=== PATIENT | female | born 1960 | race Caucasian/White ===

== ENCOUNTER 2020-04-24 09:11 | Outpatient (REF) | payer OTHER, SELFPAY ==
[2020-04-24 10:56] LABS: Hematocrit 37.9 % (37-47); Hemoglobin 12.3 g/dl (12.0-16.0); Mean Corpuscular HGB Conc 32.5 g/dl (31.0-35.0); Mean Corpuscular Hemoglobin 29.7 pg (27.0-33.0); Mean Corpuscular Volume 91.5 fL (80-98); Mean Platelet Volume 9.9 fL (9.4-12.3); Platelet Count 243 X10*3/uL (160-400); Red Blood Count 4.14 X10*6/uL (4.20-5.50); Red Cell Distribution Width 14.6 % (11.0-16.0); White Blood Count 6.4 X10*3/uL (4.8-10.8)
[2020-04-24 12:09] LABS: Creatinine Urine 33.47 mg/dL; Microalbum/Creatinine Ratio Ur 152.3 ug/mg cr
[2020-04-24 12:16] LABS: Alanine Aminotransferase 57 U/L (0-31); Albumin Level 4.4 g/dL (3.5-5.0); Alkaline Phosphatase 94 U/L (39-117); Anion Gap 15 (12-20); Aspartate Amino Transferase 61 U/L (5-31); Bilirubin Direct 0.2 mg/dL (0.0-0.5); Bilirubin Total 0.6 mg/dL (0.0-1.0); Blood Urea Nitrogen 9 mg/dL (9-16); Calcium 9.2 mg/dL (8.4-10.2); Carbon Dioxide 26 mmol/L (22-29); Chloride 101 mmol/L (96-108); Cholesterol 334 mg/dL; Estimated Glomerular Filt Rate > 60; Glucose Fasting 245 mg/dL (60-99); HDL Cholesterol 37 mg/dL; LDL Cholesterol Calculated 231 mg/dl; Potassium 4.4 mmol/l (3.3-5.1); Sodium 138 mmol/L (135-145); Total Protein 7.8 g/dL (6.5-8.0); Triglycerides 333 mg/dL
== END 2020-04-24 09:12 | disposition home or self-care (01) ==
LOC: HO.WFDLDS 09:11
PROVIDERS: Visit Provider Hospitalist
DX: E11.9 Type 2 diabetes mellitus without complications (principal)
CPT/HCPCS: 36415; 80048; 80061; 80076; 82043; 84443; 85027

== ENCOUNTER 2021-08-18 09:00 | Outpatient (REF) | payer OTHER, SELFPAY ==
[2021-08-18 12:25] LABS: Folate 18.2 ng/mL (> or = 4.0); Vitamin B12 374 pg/mL (200-900)
== END 2021-08-18 09:01 | disposition home or self-care (01) ==
LOC: HO.WFDLDS 09:00
PROVIDERS: Visit Provider Hospitalist
DX: E56.9 Vitamin deficiency, unspecified (principal)
CPT/HCPCS: 36415; 82607; 82746

== ENCOUNTER 2021-08-20 08:14 | Outpatient (REF) | payer OTHER, SELFPAY ==
[2021-08-20 11:57] LABS: Hematocrit 35.8 % (37.0-47.0); Hemoglobin 11.4 g/dl (12.0-16.0); Mean Corpuscular HGB Conc 31.8 g/dl (31.0-35.0); Mean Corpuscular Hemoglobin 28.2 pg (27.0-33.0); Mean Corpuscular Volume 88.6 fL (80.0-98.0); Mean Platelet Volume 10.2 fL (9.4-12.3); Platelet Count 300 X10*3/uL (160-400); Red Blood Count 4.04 X10*6/uL (4.20-5.50); Red Cell Distribution Width 15.7 % (11.0-16.0); White Blood Count 7.3 X10*3/uL (4.8-10.8)
[2021-08-20 12:31] LABS: TSH reflex Free T4 2.85 uIU/mL (0.32-4.0)
[2021-08-20 12:43] LABS: Alanine Aminotransferase 22 U/L (0-31); Albumin Level 4.6 g/dL (3.5-5.0); Alkaline Phosphatase 70 U/L (39-117); Anion Gap 15 (12-20); Aspartate Amino Transferase 36 U/L (5-31); Bilirubin Total 0.6 mg/dL (0.0-1.0); Blood Urea Nitrogen 20 mg/dL (9-16); Calcium 10.1 mg/dL (8.4-10.2); Carbon Dioxide 24 mmol/L (22-29); Chloride 105 mmol/L (96-108); Cholesterol 134 mg/dL; Estimated Glomerular Filt Rate 52; Glucose Fasting 119 mg/dL (60-99); HDL Cholesterol 36 mg/dL; LDL Cholesterol Calculated 58 mg/dl; Sodium 140 mmol/L (135-145); Triglycerides 203 mg/dL
== END 2021-08-20 08:15 | disposition home or self-care (01) ==
LOC: HO.WFDLDS 08:14
PROVIDERS: Visit Provider Hospitalist
DX: E11.9 Type 2 diabetes mellitus without complications (principal); I10 Essential (primary) hypertension; E78.00 Pure hypercholesterolemia, unspecified
CPT/HCPCS: 36415; 80053; 80061; 84443; 85027

== ENCOUNTER 2022-03-13 08:12 | Outpatient (REF) | payer OTHER, SELFPAY ==
[2022-03-13 11:36] LABS: Hematocrit 38.2 % (37.0-47.0); Hemoglobin 12.2 g/dl (12.0-16.0); Mean Corpuscular HGB Conc 31.9 g/dl (31.0-35.0); Mean Corpuscular Hemoglobin 28.5 pg (27.0-33.0); Mean Corpuscular Volume 89.3 fL (80.0-98.0); Mean Platelet Volume 10.3 fL (9.4-12.3); Platelet Count 309 X10*3/uL (160-400); Red Blood Count 4.28 X10*6/uL (4.20-5.50); Red Cell Distribution Width 15.6 % (11.0-16.0); White Blood Count 6.7 X10*3/uL (4.8-10.8)
[2022-03-13 12:13] LABS: Alanine Aminotransferase 20 U/L (0-31); Albumin Level 4.5 g/dL (3.5-5.0); Alkaline Phosphatase 79 U/L (39-117); Anion Gap 17 (12-20); Aspartate Amino Transferase 24 U/L (5-31); Bilirubin Total 0.5 mg/dL (0.0-1.0); Blood Urea Nitrogen 14 mg/dL (9-16); Calcium 9.7 mg/dL (8.4-10.2); Carbon Dioxide 26 mmol/L (22-29); Chloride 101 mmol/L (96-108); Cholesterol 390 mg/dL; Estimated Glomerular Filt Rate > 60; Glucose Fasting 190 mg/dL (60-99); HDL Cholesterol 43 mg/dL; LDL Cholesterol Calculated 288 mg/dl; Potassium 4.2 mmol/L (3.3-5.1); Sodium 140 mmol/L (135-145); Total Protein 7.8 g/dL (6.5-8.0); Triglycerides 298 mg/dL
== END 2022-03-13 08:13 | disposition home or self-care (01) ==
LOC: HO.WFDLDS 08:12
PROVIDERS: Visit Provider Hospitalist
DX: Z00.00 Encounter for general adult medical examination without abnormal findings (principal); E78.00 Pure hypercholesterolemia, unspecified; D64.9 Anemia, unspecified; I10 Essential (primary) hypertension
CPT/HCPCS: 36415; 80053; 80061; 85027

== ENCOUNTER 2023-08-17 09:52 | Outpatient (AMB) | payer OTHER, SELFPAY ==
[2023-08-17 09:57] VITALS: BP 142/72; PULSE 105; O2SAT 99; BMI 28.4
--- NOTE | 2023-08-17 09:57 | MHC.PC.OV ---
Vital Signs 08/17/23 09:57 Height 5 ft 2 in Weight 155 lb 6 oz BMI 28.4 BP 142/72 H Blood Pressure Location Lt brachial Pulse 105 H Pulse Source Pulse Oximeter Pulse Oximetry (%) 99 Oxygen Delivery Method Room Air Intake Visit Reasons: trans care from [facility] Intake Note: Patient is here to transfer of care. Patient needs refills on Metformin, Lisinopril, glipizide, and 'Ezetimide. Allergies simvastatin Allergy (Intermediate, Verified 08/17/23 09:58) rash aspirin Allergy (Mild, Verified 08/17/23 09:58) rash penicillin V Allergy (Mild, Verified 08/17/23 09:58) rash rousvastatin Adverse Reaction (Uncoded 08/17/23 09:58) Rash Tobacco use date assessed: 08/17/23 Dental Screening Dental Screen Date: 08/17/23 Did you have a dental visit in the last 12 months?: Yes Did you have a dental problem in the last 6 months where you did not have access to dental care?: No Was dental information given to patient?: Patient has dentist HPI trans care from [facility] HPI Details Transfer of Care Prior PCP:?SV Last office visit/CPE: Acute issue(s): Diabetes -Is on glipizide 5mg b.i.d, metformin 1000mg b.i.d. PMHx: Diabetes, Hypertension, HLD SurgHx: FHx: SocHx: PFSH Medical History HBP (high blood pressure) High cholesterol Type 2 diabetes mellitus Surgical History History of cholecystectomy Social History Housing: Unknown / Unable to assess Patient Tobacco Use Status: Never used Tobacco e-Cigarette/Vaping Use: Never Used Current occupational status: unemployed Cognitive needs: No Hearing needs: No Vision needs: No Questionnaire PHQ-9 Over the last 2 weeks, how often have you been bothered by any of the following problems? 1. Little interest or pleasure in doing things: not at all 2. Feeling down, depressed, or hopeless: not at all 3. Trouble falling or staying asleep, or sleeping too much: not at all 4. Feeling tired or having little energy: not at all 5. Poor appetite or overeating: not at all 6. Feeling bad about yourself - or that you are a failure or have let yourself or your family down: not at all 7. Trouble concentrating on things, such as reading the newspaper or watching television: not at all 8. Moving or speaking so slowly that other people could have noticed. Or the opposite - being so fidgety or restless that you have been moving around a lot more than usual: not at all 9. Thoughts that you would be better off or of hurting yourself in some way: not at all Total score: 0 Source: Developed by Drs. Carrington Fontenot, Rosanna Casillas, Hammad Kuhn and colleagues, with an educational todd from [employer]. Thrive Questionnaire Date Thrive assessed: 08/17/23 I am a: Patient What is your living situation today?: I have a steady place to live Within the past 12 months, did the food you bought not last and you didn't have the money to get more?: Never true Within the past 12 months, did you worry whether your food would run out before you got money to buy more?: Never true Do you have trouble paying for medicines?: No Do you have trouble getting transportation to medical appointments?: No Do you have trouble paying your heating and electricity bill?: No Do you have trouble taking care of your child, family member or friend?: No Do you have trouble with day-to-day activities such as bathing, preparing meals, shopping, managing finances, etc.?: No Are you currently unemployed and looking for a job?: No Are you interested in more education?: No THRIVE Score: 0 AUDIT C Alcohol Use Questionnaire (AUDIT-C) 1. How often do you have a drink containing alcohol?: Never 3. How often do you have six or more drinks on one occasion?: Never Total Score: 0 NOE-7 AMB Questionnaire NOE-7 Date NOE - 7 assessed: 08/17/23 Feeling nervous, anxious, or on edge: 0 = Not at all Not being able to stop or control worryin = Not at all Worrying too much about different things: 0 = Not at all Trouble relaxin = Not at all Being so restless that it is hard to sit still: 0 = Not at all Becoming easily annoyed or irritable: 0 = Not at all Feeling afraid as if something awful might happen: 0 = Not at all Total NOE-7 score (0-4 normal; 5-9 mild; 10-14 moderate; 15-21 severe): 0 Source: Developed by Drs. Carrington Fontenot, Rosanna Casillas, Hammad Kuhn and colleagues, with an educational todd from [employer]. Review of Systems Const Denies chills, Denies fatigue, Denies fever(s), Denies headache(s) and Denies weakness ENT Denies dizziness and Denies headache(s) Card Denies chest pain, Denies lightheadedness, Denies dyspnea and Denies other (Palpitations) Resp Denies cough, Denies dyspnea, Denies wheezing and Denies other ( shortness of breath) Musc Denies numbness and Denies tingling Neuro Denies dizziness, Denies headache(s), Denies numbness, Denies tingling, Denies paresthesias and Denies weakness Psych Denies anxiety and Denies depression Endo Denies fatigue Aller/Immun Denies wheezing Physical exam (Primary Care) Vital Signs: Last Vital Signs Pulse 105 H 08/17/23 09:57 BP 142/72 H 08/17/23 09:57 Pulse Ox 99 08/17/23 09:57 Oxygen Delivery Method Room Air 08/17/23 09:57 BMI result Body Mass Index 28.4 Tobacco/Smoking Status: Tobacco use Status Tobacco use date assessed 08/17/23 08/17/23 10:09 Patient Tobacco Use Status Never used Tobacco 08/17/23 09:58 e-Cigarette/Vaping Use Never Used 08/17/23 10:09 PHQ-9: PHQ-9 Score PHQ-9: Total score 0 08/17/23 10:09 Thrive Assessment: Date of Thrive Assessment Date Thrive assessed 08/17/23 08/17/23 10:09 Const General: no acute distress and well developed Nutritional Appearance: well nourished Orientation/consciousness: patient oriented x3 HENMT Head: Yes normocephalic and Yes atraumatic Eyes General: appearance normal, both eyes and all related structures Pupils: Equal, round and reactive pupils present EOM: EOMs intact bilaterally Resp Effort & Inspection: normal respiratory effort Auscultation: clear to auscultation bilaterally Cardio Rate: regular rate Rhythm: regular rhythm Heart sounds: S1 normal heart sound present, S2 normal heart sound present, no gallops, no murmurs and no rubs Neuro General: patient oriented x3 and gait normal Cranial nerves: Yes Equal, round and reactive pupils present Psych Affect: normal affect Results AMB Hemoglobin A1c AMB Hemoglobin A1c 9.2 % Last Edit by Chayito Rodrigues CMA on 08/17/23 10:17 Assessment and Plan Assessment & Plan (1) Type 2 diabetes mellitus: Code(s): E11.9 - Type 2 diabetes mellitus without complications Qualifiers: Diabetes mellitus complication status: without complication Diabetes mellitus manager long term care insulin use: without manager long term care use Qualified Code(s): E11.9 - Type 2 diabetes mellitus without complications Plan: A1c?9.2%.??Poor?control.??Goal?is?less?than?7.0% She?has?been?taking?glipizide?5?mg?b.i.d.?and?will?change?this?to?10?mg?a.m.?and?5?mg?p.m. Continue?metformin?1000?mg?b.i.d.?for?now. Encouraged?diet?lower?in?sugars?and?starches,?particularly?at?night?as?she?notes?that?her?morning?blood?sugars?are?high?but?her?daytime?blood?sugars?have?been?okay She?gets?an?annual?eye?exam?and?has?her?next?appointment?in?August (2) High cholesterol: Code(s): E78.00 - Pure hypercholesterolemia, unspecified Plan: Check?labs (3) HBP (high blood pressure): Code(s): I10 - Essential (primary) hypertension Qualifiers: Hypertension type: essential hypertension Qualified Code(s): I10 - Essential (primary) hypertension Plan: Blood?pressure?is?high?at?the?office?today. Will?give?her?a?script?for?monitor?and?she?can?let?me?know?if?blood?pressures?are?high?at?home?also If?blood?pressures?are?still?running?high?at?home?or?still?too?high?in?the?office,?we?discussed?that?we?may?want?to?adjust?her?medications?at?her?next?visit. (4) Laboratory exam ordered as part of routine general medical examination: Code(s): Z00.00 - Encounter for general adult medical examination without abnormal findings Plan: Check?lab Orders: Orders Lipid Panel Today Z00.00 - Encounter for general adult medical examination without abnormal findings Microalbumin, Random (w Creat) Today I10 - Essential (primary) hypertension TSH reflex Free T4 Today Z00.00 - Encounter for general adult medical examination without abnormal findings UA and rflx microscopic Today Z00.00 - Encounter for general adult medical examination without abnormal findings Comprehensive [place]. Panel Fast Today Z00.00 - Encounter for general adult medical examination without abnormal findings Vitamin D 25-OH Total Today E55.9 - Vitamin D deficiency, unspecified AMB Hemoglobin A1c Today Z13.9 - Encounter for screening, unspecified Medications: New blood pressure monitor Automatic, Digital. Dx: I10. Daily As directed, 999 days/lifetime 1 ea 0RF I10 - Essential (primary) hypertension Refilled metformin 1,000 mg (2 x 500 mg) PO BID 360 tabs 2RF E11.9 - Type 2 diabetes mellitus without complications glipizide 5 mg (1/2 x 10 mg) PO BID 90 tabs 1RF E11.9 - Type 2 diabetes mellitus without complications ezetimibe 10 mg PO DAILY 90 tabs 3RF E78.00 - Pure hypercholesterolemia, unspecified lisinopril 40 mg PO DAILY 90 tabs 3RF E11.9 - Type 2 diabetes mellitus without complications lisinopril 40 mg PO DAILY 90 tabs 3RF E11.9 - Type 2 diabetes mellitus without complications Coding Level of Care Code Est Pt Level 4 (76696) Diagnoses Type 2 diabetes mellitus without complication, without long-term current use of insulin E11.9 Diabetes mellitus complication status: without complication Diabetes mellitus manager long term care insulin use: without [facility] use High cholesterol E78.00 Essential hypertension I10 Hypertension type: essential hypertension Laboratory exam ordered as part of routine general medical examination Z00.00
== END 2023-08-17 11:18 | disposition home or self-care (01) ==
PROVIDERS: PCP Hospitalist; Visit Provider Family Medicine
DX: E11.9 Type 2 diabetes mellitus without complications (principal); E78.00 Pure hypercholesterolemia, unspecified; I10 Essential (primary) hypertension; Z00.00 Encounter for general adult medical examination without abnormal findings; Z13.9 Encounter for screening, unspecified
CPT/HCPCS: 83036; 99214

== ENCOUNTER 2023-09-02 12:51 | Outpatient (AMB) | payer OTHER, SELFPAY ==
--- NOTE | 2023-09-02 13:19 | MHC.PC.OV ---
Vital Signs 09/02/23 13:21 09/02/23 13:33 09/02/23 13:46 Height 5 ft 2 in Weight 152 lb BMI 27.8 BP 192/82 H 160/60 H 144/64 H Blood Pressure Location Rt brachial Rt brachial Rt radial Position Sitting Sitting Sitting Respiration 12 Pulse 97 Pulse Source Pulse Oximeter Temp 96.6 F L Temp Source Temporal Artery Scan Pulse Oximetry (%) 96 Oxygen Delivery Method Room Air Intake Visit Reasons: [facility] /Elev bp Intake Note: Patient is accompanied by her Irwin Chatterjee. Patient is here for a hospital discharge follow up. Patient was seen a [facility], medical records are scanned into the chart. Patient reports she went to the ER for high blood pressure. Patient started HCTZ 12.5mg QAM. Patient states she took the HCTZ at 8am. The HCTZ is in addition to Lisinopril 40mg. Hot Roll Laminator Required: No Accompanied by: Spouse Allergies simvastatin Allergy (Intermediate, Verified 09/02/23 13:32) rash aspirin Allergy (Mild, Verified 09/02/23 13:32) rash penicillin V Allergy (Mild, Verified 09/02/23 13:32) rash rousvastatin Adverse Reaction (Uncoded 09/02/23 13:30) Rash Medication List - Last Reconciled 09[facility]02/23 [facility] blood pressure monitor Automatic, Digital. Dx: I10. Daily As directed, 999 days/lifetime blood sugar diagnostic (FreeStyle Lite Strips) 1 strip miscellaneous BID PRN blood-glucose meter (FreeStyle Lite Meter kit) As directed cholecalciferol (vitamin D3) 50 mcg PO DAILY ezetimibe 10 mg PO DAILY ferrous sulfate (Feosol) 325 mg PO BID glipizide 5 mg (1/2 x 10 mg) PO BID hydrochlorothiazide 12.5 mg PO QAM lisinopril 40 mg PO DAILY metformin 1,000 mg (2 x 500 mg) PO BID multivitamin with folic acid 400 mcg (Daily-[place] (with folic acid)) 1 tab PO DAILY Tobacco use date assessed: 08/17/23 Dental Screening Dental Screen Date: 08/17/23 HPI HPI Comments History of Present Illness Details 63-year-old female with anemia, hypertension, hyperlipidemia, type 2 diabetes, bilat cataracts status post cholecystectomy Health maintenance Hemoglobin A1c 9.2% 08/17/2023 Diabetic eye exam 09/10/2022 negative for diabetic retinopathy DEXA Colonoscopy: Mammo Last set of labs 03/13/2022 show a normal CBC, normal electrolytes, normal renal function, elevated lipid profile Here today for HDF Went to [facility] ED 09/02/23 for uncontrolled HTN Work up reviewed. New meds: HCTZ 12.5 mg po QD Feels fine. Taking meds as directed. [facility] Medical History HBP (high blood pressure) High cholesterol Type 2 diabetes mellitus Surgical History History of cholecystectomy Social History Housing: Unknown / Unable to assess Patient Tobacco Use Status: Never used Tobacco e-Cigarette/Vaping Use: Never Used Current occupational status: unemployed Cognitive needs: No Hearing needs: No Vision needs: No Questionnaire PHQ-9 Over the last 2 weeks, how often have you been bothered by any of the following problems? 1. Little interest or pleasure in doing things: not at all 2. Feeling down, depressed, or hopeless: not at all 3. Trouble falling or staying asleep, or sleeping too much: not at all 4. Feeling tired or having little energy: not at all 5. Poor appetite or overeating: not at all 6. Feeling bad about yourself - or that you are a failure or have let yourself or your family down: not at all 7. Trouble concentrating on things, such as reading the newspaper or watching television: not at all 8. Moving or speaking so slowly that other people could have noticed. Or the opposite - being so fidgety or restless that you have been moving around a lot more than usual: not at all 9. Thoughts that you would be better off or of hurting yourself in some way: not at all Total score: 0 Depression Screening Interpretation: Negative Depression Screening Done: Yes 15467 - PHQ-9 Billing: Patient declined-do not bill Source: Developed by Drs. Carrington Fontenot, Rosanna Casillas, Hammad Kuhn and colleagues, with an educational todd from [employer]. Thrive Questionnaire Date Thrive assessed: 08/17/23 NOE-7 AMB Questionnaire NOE-7 Date NOE - 7 assessed: 08/17/23 Source: Developed by Drs. Carrington Fontenot, Rosanna Casillas, Hammad Kuhn and colleagues, with an educational todd from [employer]. Review of Systems Const All systems reviewed & are unremarkable except as noted in HPI and below Physical exam (Primary Care) Vital Signs: Last Vital Signs Temp 96.6 F L 09/02/23 13:21 Pulse 97 09/02/23 13:21 Resp 12 09/02/23 13:21 BP 192/82 H 09/02/23 13:21 Pulse Ox 96 09/02/23 13:21 Oxygen Delivery Method Room Air 09/02/23 13:21 Care Plan Goal for BP management: cont meds, monitor at home BMI result Body Mass Index 27.8 BMI Assessment/Plan discussion: High BMI High, discussed plan: lifestyle Tobacco/Smoking Status: Tobacco use Status Tobacco use date assessed 08/17/23 08/17/23 10:09 Patient Tobacco Use Status Never used Tobacco 08/17/23 09:58 e-Cigarette/Vaping Use Never Used 08/17/23 10:09 Depression Screening Interpretation: Negative Thrive Assessment: Date of Thrive Assessment Date Thrive assessed 08/17/23 08/17/23 10:09 Const Other: awake alert accompanied by RRR LS CTAB Assessment and Plan Assessment & Plan (1) HBP (high blood pressure): Comment: On lisinopril 40 mg p.o. daily. Emergency room visit 09/02/2023 for elevated blood pressure. Started on hydrochlorothiazide 12.5 mg p.o. daily. Great improvement in blood pressure. Advised to continue. Monitor blood pressure daily at home. Goals less than 130/80. Return to office in 2 weeks for close follow up. Code(s): I10 - Essential (primary) hypertension Qualifiers: Hypertension type: essential hypertension Qualified Code(s): I10 - Essential (primary) hypertension (2) Hospital discharge follow-up: Code(s): Z09 - Encounter for follow-up examination after completed treatment for conditions other than malignant neoplasm Plan: This note is constructed using voice recognition software. While every effort has been made to ensure accuracy in camp manager, still errors may have been included Sometimes, these errors may affect the content or meaning of the given sentence . Total time spent caring for the patient today was 60 minutes. This includes time spent before the visit reviewing the chart, time spent during the visit, and time spent after the visit on documentation (3) Diabetes mellitus type 2 with complications: Code(s): E11.8 - Type 2 diabetes mellitus with unspecified complications (4) Hyperlipidemia associated with type 2 diabetes mellitus: Code(s): E11.69 - Type 2 diabetes mellitus with other specified complication; E78.5 - Hyperlipidemia, unspecified (5) Cataract due to secondary diabetes: Code(s): E13.36 - Other specified diabetes mellitus with diabetic cataract Orders: Orders Lipid Panel 10/25/23 E11.69 - Type 2 diabetes mellitus with other specified complication, E11.8 - Type 2 diabetes mellitus with unspecified complications, E13.36 - Other specified diabetes mellitus with diabetic cataract, E78.5 - Hyperlipidemia, unspecified, I10 - Essential (primary) hypertension Hemoglobin A1c 10/25/23 E11.69 - Type 2 diabetes mellitus with other specified complication, E11.8 - Type 2 diabetes mellitus with unspecified complications, E13.36 - Other specified diabetes mellitus with diabetic cataract, E78.5 - Hyperlipidemia, unspecified, I10 - Essential (primary) hypertension Comprehensive [place]. Panel Fast 10/25/23 E11.69 - Type 2 diabetes mellitus with other specified complication, E11.8 - Type 2 diabetes mellitus with unspecified complications, E13.36 - Other specified diabetes mellitus with diabetic cataract, E78.5 - Hyperlipidemia, unspecified, I10 - Essential (primary) hypertension Vitamin B12 and Folate 10/25/23 E11.69 - Type 2 diabetes mellitus with other specified complication, E11.8 - Type 2 diabetes mellitus with unspecified complications, E13.36 - Other specified diabetes mellitus with diabetic cataract, E78.5 - Hyperlipidemia, unspecified, I10 - Essential (primary) hypertension Hemoglobin and Hematocrit 10/25/23 E11.69 - Type 2 diabetes mellitus with other specified complication, E11.8 - Type 2 diabetes mellitus with unspecified complications, E13.36 - Other specified diabetes mellitus with diabetic cataract, E78.5 - Hyperlipidemia, unspecified, I10 - Essential (primary) hypertension Microalbumin, Random (w Creat) 10/25/23 E11.69 - Type 2 diabetes mellitus with other specified complication, E11.8 - Type 2 diabetes mellitus with unspecified complications, E13.36 - Other specified diabetes mellitus with diabetic cataract, E78.5 - Hyperlipidemia, unspecified, I10 - Essential (primary) hypertension Vitamin D 1,25 dihydroxy 10/24/ E11.69 - Type 2 diabetes mellitus with other specified complication, E11.8 - Type 2 diabetes mellitus with unspecified complications, E13.36 - Other specified diabetes mellitus with diabetic cataract, E78.5 - Hyperlipidemia, unspecified, I10 - Essential (primary) hypertension Patient Instructions: OMRON is the brand for the BP cuff - you can get this at [facility] Goal < 130/80 Check once daily, bring log with you to next visit Next visit in 2 weeks to follow up on hypertension and to establish care. Sooner if needed. Coding Level of Care Code Est Pt Level 5 (63353) Diagnoses Essential hypertension I10 Hypertension type: essential hypertension Hospital discharge follow-up Z09 Diabetes mellitus type 2 with complications E11.8 Hyperlipidemia associated with type 2 diabetes mellitus E11.69; E78.5 Cataract due to secondary diabetes E13.36
[2023-09-02 13:21] VITALS: BP 192/82; PULSE 97; RESP 12; TEMP 35.9; O2SAT 96; BMI 27.8
[2023-09-02 13:33] VITALS: BP 160/60
[2023-09-02 13:46] VITALS: BP 144/64
== END 2023-09-02 13:56 | disposition home or self-care (01) ==
PROVIDERS: PCP Hospitalist; Visit Provider Nurse Practitioner Family
DX: I10 Essential (primary) hypertension (principal); E11.69 Type 2 diabetes mellitus with other specified complication; Z09 Encounter for follow-up examination after completed treatment for conditions other than malignant neoplasm; E78.5 Hyperlipidemia, unspecified
CPT/HCPCS: 99215; 99417

== ENCOUNTER 2023-09-03 12:38 | Outpatient (AMB) | payer OTHER, SELFPAY ==
--- NOTE | 2023-09-03 13:09 | MHC.OFFWIV ---
Intake Vital Signs 09/03/23 13:16 09/03/23 13:18 09/03/23 13:45 Height 5 ft 2 in Weight 152 lb 4 oz BMI 27.8 BP 162/84 H 160/78 H 134/62 Blood Pressure Location Lt brachial Lt brachial Rt brachial Position Sitting Sitting Respiration 14 Pulse 89 Pulse Source Pulse Oximeter Pulse Oximetry (%) 98 Oxygen Delivery Method Room Air Intake Visit Reasons: low blood sugar Intake Note: Low glucose, 50 last night. Patient has been working on her diet and reducing carbs. Needs refill on test strips Patient Tobacco Use Status: Never used Tobacco Allergies simvastatin Allergy (Intermediate, Verified 09/03/23 13:32) rash aspirin Allergy (Mild, Verified 09/03/23 13:32) rash penicillin V Allergy (Mild, Verified 09/03/23 13:32) rash rousvastatin Adverse Reaction (Uncoded 09/02/23 13:30) Rash Medication List - Last Reconciled 09/03/23 by Raquel Win, [facility] blood pressure monitor Automatic, Digital. Dx: I10. Daily As directed, 999 days/lifetime blood sugar diagnostic (FreeStyle Lite Strips) 1 strip miscellaneous BID PRN blood-glucose meter (FreeStyle Lite Meter kit) As directed cholecalciferol (vitamin D3) 50 mcg PO DAILY ezetimibe 10 mg PO DAILY ferrous sulfate (Feosol) 325 mg PO BID glipizide 5 mg (1/2 x 10 mg) PO BID hydrochlorothiazide 12.5 mg PO QAM lisinopril 40 mg PO DAILY metformin 1,000 mg (2 x 500 mg) PO BID multivitamin with folic acid 400 mcg (Daily-Catarino (with folic acid)) 1 tab PO DAILY vitamin B complex 1 cap PO DAILY Do you need a note to return to daycare/school/sports/work: No HPI HPI Comments History of Present Illness Details Here today w/ c/o hypoglycemia occured last night around 1030pm she was awoke from sleeping; it was 50mg/dl Admits dietary changes, , low carb, low sugar. Treat a low blood sugar with food. With positive effect. Admits to overeating since this time as she felt so terrible during the low blood sugar episode. Blood glucose at the time of visit today 146. [facility] Medical History (Updated 09/03/23 @ 15:12 by Raquel Win, [facility]-) Vitamin deficiency Fungal rash of torso Fungal infection HBP (high blood pressure) High cholesterol Type 2 diabetes mellitus Surgical History History of cholecystectomy Social History Housing: Unknown / Unable to assess Patient Tobacco Use Status: Never used Tobacco e-Cigarette/Vaping Use: Never Used Current occupational status: unemployed Cognitive needs: No Hearing needs: No Vision needs: No Review of Systems Const All systems reviewed & are unremarkable except as noted in HPI and below Physical Exam Vital Signs: Last Vital Signs Pulse 89 09/03/23 13:16 Resp 14 09/03/23 13:16 BP 160/78 H 09/03/23 13:18 Pulse Ox 98 09/03/23 13:16 Oxygen Delivery Method Room Air 09/03/23 13:16 BMI result Body Mass Index 27.8 Const Other: Awake alert oriented no acute distress accompanied by Speaking in full sentences Assessment & Plan Assessment & Plan (1) Diabetes mellitus type 2 with complications: Comment: Hypoglycemia while taking glipizide 10 mg p.o. b.i.d. in addition to metformin a 1000 mg p.o. b.i.d.. The plan will be to have her discontinue the glipizide immediately. New prescription sent in for empaglifozin-metformin ER 5-1000 mg ER 2 tablets p.o. q.a.m. She should discontinue her metformin once she starts this medication. Continue to monitor blood sugars. Return to office in 2 weeks for monitoring. The rules of 15 reviewed with her today. Should discuss CGM at the next visit. Code(s): E11.8 - Type 2 diabetes mellitus with unspecified complications Plan: . Plan This note is constructed using voice recognition software. While every effort has been made to ensure accuracy in shipboard intelligence analyst, still errors may have been included Sometimes, these errors may affect the content or meaning of the given sentence . Total time spent caring for the patient today was 30 minutes. This includes time spent before the visit reviewing the chart, time spent during the visit, and time spent after the visit on documentation Medications: New empagliflozin-metformin 5-1,000 mg ER 2 tabs (2 x 5-1,000 mg) PO QAM 60 ea 0RF Refilled blood sugar diagnostic (FreeStyle Lite Strips) 1 strip miscellaneous BID PRN 100 strips 10RF for diabetes mellitus E11.9 - Type 2 diabetes mellitus without complications Discontinued metformin Discontinued Reason: Doctor's Order 1,000 mg (2 x 500 mg) PO BID 360 tabs 2RF E11.9 - Type 2 diabetes mellitus without complications glipizide Discontinued Reason: Doctor's Order 5 mg (1/2 x 10 mg) PO BID 90 tabs 1RF E11.9 - Type 2 diabetes mellitus without complications Patient Instructions: Take Metformin tonight STOP GLipizide immediatley Tomorrow start new medication and STOP taking Metformin (there is metformin in the new medicine i sent in) cont to eat and drink normally and monitor your blood sugar I will see you in 2 weeks, sooner if needed Coding Level of Care Code Est Pt Level 4 (12298) Diagnoses Diabetes mellitus type 2 with complications E11.8
[2023-09-03 13:16] VITALS: BP 162/84; PULSE 89; RESP 14; O2SAT 98; BMI 27.8
[2023-09-03 13:18] VITALS: BP 160/78
[2023-09-03 13:45] VITALS: BP 134/62
== END 2023-09-03 14:06 | disposition home or self-care (01) ==
PROVIDERS: PCP Hospitalist
DX: E11.8 Type 2 diabetes mellitus with unspecified complications (principal)
CPT/HCPCS: 99214

== ENCOUNTER 2023-09-14 09:16 | Outpatient (AMB) | payer OTHER, SELFPAY ==
--- NOTE | 2023-09-14 09:17 | MHC.PC.OV ---
Vital Signs 09/14/23 09:18 Height 5 ft 2 in Weight 149 lb 6 oz BMI 27.3 BP 138/72 Blood Pressure Location Lt brachial Position Sitting Pulse 93 Pulse Source Pulse Oximeter Temp 97.7 F Temp Source Oral Pulse Oximetry (%) 98 Oxygen Delivery Method Room Air Intake Visit Reasons: bleeding Intake Note: Patient is here with bleeding from vagina. Allergies simvastatin Allergy (Intermediate, Verified 09/14/23 09:21) rash aspirin Allergy (Mild, Verified 09/14/23 09:21) rash penicillin V Allergy (Mild, Verified 09/14/23 09:21) rash rousvastatin Adverse Reaction (Uncoded 09/14/23 09:21) Rash Tobacco use date assessed: 09/14/23 Dental Screening Dental Screen Date: 08/17/23 HPI bleeding HPI Details Patient?was[facility]at[facility]?yesterday?for?abnormal?vaginal?bleeding?and?anemia. Symptoms?started?about?16?weeks?ago.??Also?notes?cramping, spotting. Denies?lightheadedness?or?syncope. H/H?mildly?low?at 12.1/35.4% They also report some abdominal pain. HPI Comments History of Present Illness Details Documentation assistance for August Culver MD, was provided by Murtaza Lucas, Director Bioinformatics on 09/14/2023 9:32 AM EST. I, Dr. Culver, have read, observed, and verified documentation. [facility] Medical History (Updated 09/14/23 @ 09:34 by Murtaza Lucas) Vitamin deficiency Fungal rash of torso Fungal infection HBP (high blood pressure) High cholesterol Type 2 diabetes mellitus Surgical History History of cholecystectomy Social History Housing: Unknown / Unable to assess Patient Tobacco Use Status: Never used Tobacco e-Cigarette/Vaping Use: Never Used Current occupational status: unemployed Cognitive needs: No Hearing needs: No Vision needs: No Questionnaire Thrive Questionnaire Date Thrive assessed: 08/17/23 NOE-7 AMB Questionnaire NOE-7 Date NOE - 7 assessed: 08/17/23 Source: Developed by Drs. Carrington Fontenot, Rosanna Casillas, Hammad Kuhn and colleagues, with an educational todd from [employer]. Review of Systems Const Denies chills, Denies fatigue, Denies fever(s), Denies headache(s) and Denies weakness ENT Denies dizziness and Denies headache(s) Card Denies dyspnea Resp Denies cough, Denies dyspnea, Denies wheezing and Denies other (shortness of breath) GI Reports abdominal pain Musc Denies numbness and Denies tingling Neuro Denies dizziness, Denies headache(s), Denies numbness, Denies tingling and Denies weakness Psych Denies anxiety and Denies depression Endo Denies fatigue Aller/Immun Denies wheezing Physical exam (Primary Care) Vital Signs: Last Vital Signs Temp 97.7 F 09/14/23 09:18 Pulse 93 09/14/23 09:18 BP 138/72 09/14/23 09:18 Pulse Ox 98 09/14/23 09:18 Oxygen Delivery Method Room Air 09/14/23 09:18 BMI result Body Mass Index 27.3 Tobacco/Smoking Status: Tobacco use Status Tobacco use date assessed 09/14/23 09/14/23 09:22 Patient Tobacco Use Status Never used Tobacco 09/14/23 09:22 e-Cigarette/Vaping Use Never Used 09/14/23 09:22 Thrive Assessment: Date of Thrive Assessment Date Thrive assessed 08/17/23 09/14/23 09:22 Const General: well developed; No acute distress Nutritional Appearance: well nourished Orientation/consciousness: patient oriented x3 [facility] Head: Yes normocephalic and Yes atraumatic Eyes General: appearance normal, both eyes and all related structures Pupils: Equal, round and reactive pupils present EOM: EOMs intact bilaterally Resp Effort & Inspection: normal respiratory effort Neuro General: patient oriented x3 and gait normal Cranial nerves: Yes Equal, round and reactive pupils present Psych Affect: normal affect Assessment and Plan Assessment & Plan (1) Abnormal vaginal bleeding in premenopausal patient: Code(s): N92.4 - Excessive bleeding in the premenopausal period Plan: Abnormal?vaginal?bleeding?and?patient?was?seen?at?[facility].??Ultrasound?showed?some?fibroids. She?had?mild?anemia?as?well. Will?likely?need endometrial?biopsy?as?well Referred?to?doctor's assistant (2) Anemia: Code(s): D64.9 - Anemia, unspecified Plan: Check?CBC & Iron (3) Abdominal pain: Code(s): R10.9 - Unspecified abdominal pain Plan: Mild?abdominal?discomfort?associated?with?her?abnormal?vaginal?bleeding. As?above,?referred?to?doctor's assistant Orders: Orders Comprehensive Met. Panel Today N92.4 - Excessive bleeding in the premenopausal period IRON PROFILE Today D64.9 - Anemia, unspecified Complete Blood Count Auto Diff Today N92.4 - Excessive bleeding in the premenopausal period, Z00.00 - Encounter for general adult medical examination without abnormal findings Referrals HANDY WORKER Referral N92.4 - Excessive bleeding in the premenopausal period Coding Level of Care Code Est Pt Level 4 (37341) Diagnoses Abnormal vaginal bleeding in premenopausal patient N92.4 Anemia D64.9 Abdominal pain R10.9
[2023-09-14 09:18] VITALS: BP 138/72; PULSE 93; TEMP 36.5; O2SAT 98; BMI 27.3
== END 2023-09-14 09:56 | disposition home or self-care (01) ==
PROVIDERS: PCP Hospitalist; Visit Provider Family Medicine
DX: N92.4 Excessive bleeding in the premenopausal period (principal); D64.9 Anemia, unspecified; R10.9 Unspecified abdominal pain
CPT/HCPCS: 99214

== ENCOUNTER 2023-09-14 09:40 | Outpatient (REF) | payer OTHER, SELFPAY ==
[2023-09-14 11:36] LABS: MANUAL DIFF FLAG NO
[2023-09-14 11:44] LABS: Basophils Percent Auto 0.5 % (0-2); Eosinophils Absolute Auto 0.1 X10*3/uL (0.0-0.4); Eosinophils Percent Auto 0.7 % (0-4); Hematocrit 36.4 % (37.0-47.0); Hemoglobin 12.2 g/dl (12.0-16.0); Imm Gran Abs Auto 0.03 X10*3/uL (0.00-0.03); Imm Gran Pct Auto 0.3 % (0.0-0.4); Lymphocytes Percent Auto 23.5 % (20-40); Mean Corpuscular HGB Conc 33.5 g/dl (31.0-35.0); Mean Corpuscular Hemoglobin 29.8 pg (27.0-33.0); Mean Platelet Volume 9.4 fL (9.4-12.3); Monocytes Absolute Auto 0.5 X10*3/uL (0.1-1.2); Monocytes Percent Auto 5.6 % (2-11); Neutrophils Percent Auto 69.4 % (45-73); Platelet Count 358 X10*3/uL (160-400); Red Blood Count 4.09 X10*6/uL (4.20-5.50); Red Cell Distribution Width 13.6 % (11.0-16.0); White Blood Count 8.7 X10*3/uL (4.8-10.8)
[2023-09-14 12:25] LABS: Alanine Aminotransferase 44 U/L (0-31); Albumin Level 4.3 g/dL (3.5-5.0); Alkaline Phosphatase 65 U/L (39-117); Anion Gap 13 (12-20); Aspartate Amino Transferase 39 U/L (5-31); Bilirubin Total 0.6 mg/dL (0.0-1.0); Blood Urea Nitrogen 32 mg/dL (9-16); Calcium 9.9 mg/dL (8.4-10.2); Carbon Dioxide 25 mmol/L (22-29); Chloride 97 mmol/L (96-108); Estimated Glomerular Filt Rate 46; Glucose Random 273 mg/dL (60-115); Iron 97 mcg/dL (30-160); Percent Iron Saturation 31 % (15-50); Potassium 4.8 mmol/L (3.3-5.1); Sodium 130 mmol/L (135-145); Total Iron Binding Capacity 317 mcg/dL (228-428); Total Protein 8.2 g/dL (6.5-8.0); Unsaturated Iron Binding 220 ug/dL
== END 2023-09-14 09:41 | disposition home or self-care (01) ==
LOC: HO.WFDLDS 09:40
PROVIDERS: Visit Provider Family Medicine
DX: N92.4 Excessive bleeding in the premenopausal period (principal); D64.9 Anemia, unspecified; Z00.00 Encounter for general adult medical examination without abnormal findings
CPT/HCPCS: 36415; 80053; 83540; 85025

== ENCOUNTER 2023-09-20 13:45 | Outpatient (REF) | payer OTHER, SELFPAY ==
[2023-09-22 23:18] LABS: HPV mRNA E6/E7 rflx Not Detected (Not Detected)
== END 2023-09-20 13:46 | disposition home or self-care (01) ==
LOC: HO.LNP 13:45
PROVIDERS: Pathology Cytopathology; PCP Hospitalist; Visit Provider Obstetrics & Gynecology
DX: N95.0 Postmenopausal bleeding (principal)
CPT/HCPCS: 58100; 81288; 87624; 88142; 88305; 88341; 88342; 99202

== ENCOUNTER 2023-09-20 13:45 | Outpatient (AMB) | payer OTHER, SELFPAY ==
[2023-09-20 14:00] VITALS: BP 138/60; BMI 27.0
--- NOTE | 2023-09-20 14:00 | A.OFFVIS_ITS ---
Vital Signs 09/20/23 14:00 Height 5 ft 2 in Weight 147 lb 11.355 oz BMI 27.0 BP 138/60 Intake Visit Reasons: PMB Custom Shoe Designer And Maker Required: Yes Custom Shoe Designer And Maker Language: Neuropathologist Name: Luh RHODES Information Interpreted: non-clinical & clinical Lieutenant Ballistics: Lieutenant Ballistics Present (Luh RHODES) Accompanied by: Self / Same As Patient Allergies simvastatin Allergy (Intermediate, Verified 09/14/23 09:21) rash aspirin Allergy (Mild, Verified 09/14/23 09:21) rash penicillin V Allergy (Mild, Verified 09/14/23 09:21) rash rousvastatin Adverse Reaction (Uncoded 09/14/23 09:21) Rash Post menopausal: Yes HPI Comments Details: Presenting referred from her PCP regarding postmenopausal bleeding. The patient had few episodes of vaginal spotting a year ago and resolved spontaneously, had an episode of heavy vaginal bleeding a week ago. The patient went to the emergency room at [facility] where an ultrasound was done and showed a 2.5 cm echogenic mass protruding to the endometrial cavity with fluid around it, endometrial signal was 2.4 cm Last co testing was few years ago, was normal according to the patient, no records available Last mammogram was more than a year ago, was normal according to the patient, no records available [facility] Medical History (Updated 09/20/23 @ 14:28 by Lon Mccabe MD) Vitamin deficiency Fungal rash of torso Fungal infection HBP (high blood pressure) High cholesterol Type 2 diabetes mellitus Surgical History History of cholecystectomy Social History Housing: Unknown / Unable to assess Patient Tobacco Use Status: Never used Tobacco e-Cigarette/Vaping Use: Never Used Current occupational status: unemployed Cognitive needs: No Hearing needs: No Vision needs: No Review of Systems Const All systems reviewed & are unremarkable except as noted in HPI and below Card Reports as per HPI Resp Reports as per HPI GI Reports as per HPI and Reports no additional complaints Reports as per HPI Physical Exam Vital Signs: Last Vital Signs BP 138/60 09/20/23 14:00 BMI result Body Mass Index 27.0 Const General: cooperative, healthy appearing and comfortable Chest Chest palpation & inspection: normal inspection of the chest and normal palpation of entire chest wall Breast/axilla inspection: normal inspection of the breasts and normal inspection of the axillae Breast/axilla palpation: normal palpation of the breasts, normal palpation of the axillae and no axillary lymphadenopathy Resp Effort & Inspection: normal respiratory effort Auscultation: clear to auscultation bilaterally Percussion: percussion normal Cardio Palpation: normal PMI Rate: regular rate Rhythm: regular rhythm Heart sounds: no murmurs and no rubs Peripheral pulses: Peripheral pulses 2+ throughout GI Inspection: Yes normal to inspection Palpation (GI): Soft to palpation, nontender, no guarding, not rigid and No hepatosplenomegaly present Percussion: Yes normal to percussion Auscultation: normal bowel sounds Rectal Exam - Female: deferred General: Yes bladder normal to palpation External Female Exam: No lesion Speculum Exam - Vagina: normal appearance of the vagina, normal palpation, normal vaginal discharge and not erythematous Speculum Exam - Cervix: normal appearance of the cervix and normal palpation Bimanual exam- vagina & uterus: normal bimanual exam, normal palpation, uterine size normal, bladder normal to palpation, consistency normal and normal palpation Bimanual Exam- Adnexa, other: normal adnexae, no masses and no tenderness Office Procedures Endometrial Biopsy Details: The patient was counseled regarding the indication and benefits of endometrial sampling to rule out endometrial pathology including not limited to endometrial hyperplasia or endometrial cancer and others; The alternatives (Either do nothing vs. hysteroscopy D&C) & the risks were discussed with the patient incl uding but not limited: pain, uterine perforation, bleeding, infection, possible injury to bladder, bowel, ureter, possible need for blood transfusion with all its possible risks. The patient verbalized understanding all questions answered and signed consent. The patient was placed into the dorsal lithotomy position; a speculum was inserted in the vagina. Using aseptic technique for the procedure, the cervix was cleansed with Betadine. The anterior lip of the cervix was grasped with a single tooth tenaculum. The uterus was sounded to 7 cm with a 4 mm Pipelle was used. Tissues samples were obtained and placed in formalin, in a patient labeled container and sent to the pathology department. At the end of the procedure, there was minimal bleeding noted The patient tolerated the procedure well and was discharged in good condition with the following instructions: Nothing in the vagina until the bleeding stops. No sex until the bleeding stops, to call if any of the following occurs: fever (>100.4), flu-like symptoms, abdominal pain, heavy bleeding, four smelling vaginal discharge. The patient was instructed to schedule a Follow up appointment in 2 weeks to discuss pathology results of the biopsy and treatment options. This note was generated with a voice recognition program. Some errors may have been overlooked during the review of this note. Sometimes these errors may affect the content or meaning of a given sentence. [id number] Biopsy Assessment & Plan Assessment & Plan (1) Postmenopausal bleeding: Comment: Thick endometrium by ultrasound 2.5 cm submucosal mass Code(s): N95.0 - Postmenopausal bleeding Category: Medical Plan: Discussed with the patient the differential diagnosis of post menopausal bleed ing with normal pelvic exam including but not limited to, endometrial hyperplasia, cancer, polyps and other causes; co testing done Discussed with the patient the pelvic ultrasound findings, the endometrial stripe thickenss measured by ultrasound was more than 4mm and a 2.5 cm submucosal mass. The negative predictive value, positive predictive value, Sensitivity, specificity of using ultrasound measurement of endometrial stripe to detecting endometrial pathology including hyperplasia , polyp or cancer were discussed with the patient. Recommended to the patient that the next step is an endometrial sampling via hysteroscopy D&C possible polypectomy versus endometrial biopsy to r/o endometrial pathology including hyperplasia or cancer. All the pros and cons risks and benefits of each approach were discussed with the patient, endometrial biopsy being less invasive, office procedure with less sensitivity and inability diagnose a polyp and removal versus hysteroscopy done under anesthesia more invasive more sensitive to endometrial cancer and possibility of diagnosing and endometrial polyp with the possibility of polypectomy. All questions were answered pt verbalized understanding and decided to proceed with endometrial biopsy. Will start with office EMB if negative for malignancy will proceed to hysteroscopy D&C possible polypectomy/myomectomy. EMB done, see procedure note Orders: Orders Pap Smear Today N92.4 - Excessive bleeding in the premenopausal period Surgical Today N92.4 - Excessive bleeding in the premenopausal period AMB Endometrial Biopsy Today N95.0 - Postmenopausal bleeding Coding Level of Care Code New Pt Level 3 (69832) Diagnoses Postmenopausal bleeding N95.0 CPT Codes Endometrial Biopsy - CPT: 39628-[id number] Biopsy ([id number])
== END 2023-09-20 14:34 | disposition home or self-care (01) ==
PROVIDERS: PCP Hospitalist; Visit Provider Obstetrics & Gynecology
DX: N95.0 Postmenopausal bleeding (principal)
CPT/HCPCS: 58100; 99203

== ENCOUNTER 2023-09-23 08:23 | Outpatient (AMB) | payer OTHER, SELFPAY ==
--- NOTE | 2023-09-23 08:27 | MHC.PC.OV ---
Vital Signs 09/23/23 08:29 09/23/23 08:33 09/23/23 09:03 Height 5 ft 2 in Weight 146 lb 8 oz BMI 26.8 BP 158/70 H 138/64 Blood Pressure Location Lt brachial Lt brachial Lt brachial Position Sitting Sitting Sitting Respiration 14 Pulse 96 Pulse Source Pulse Oximeter Temp 98 F Temp Source Oral Pulse Oximetry (%) 96 Oxygen Delivery Method Room Air Intake Visit Reasons: Establish care Intake Note: Follow up Janitorial Tech Required: Yes Janitorial Tech Name: is helping translate Allergies simvastatin Allergy (Intermediate, Verified 09/23/23 08:49) rash aspirin Allergy (Mild, Verified 09/23/23 08:49) rash penicillin V Allergy (Mild, Verified 09/23/23 08:49) rash rousvastatin Adverse Reaction (Uncoded 09/23/23 08:49) Rash Medication List - Last Reconciled 09/23/23 by Raquel Win, [employer]- blood pressure monitor Automatic, Digital. Dx: I10. Daily As directed, 999 days/lifetime blood sugar diagnostic (FreeStyle Lite Strips) 1 strip miscellaneous BID PRN blood-glucose meter (FreeStyle Lite Meter kit) As directed cholecalciferol (vitamin D3) 50 mcg PO DAILY empagliflozin-metformin 5-1,000 mg ER 2 tabs (2 x 5-1,000 mg) PO QAM ezetimibe 10 mg PO DAILY ferrous sulfate (Feosol) 325 mg PO BID hydrochlorothiazide 12.5 mg PO QAM lisinopril 40 mg PO DAILY multivitamin with folic acid 400 mcg (Daily-Catarino (with folic acid)) 1 tab PO DAILY vitamin B complex 1 cap PO DAILY Tobacco use date assessed: 09/14/23 Dental Screening Dental Screen Date: 08/17/23 HPI HPI Comments History of Present Illness Details 63-year-old female with diabetes type 2, anemia, hypertension, hyperlipidemia, fibroids, left ovarian cyst, CKD 3, elevated LFTS Specialists [facility] Laboratory Technician Ophtho Health maintenance HgA1c 9/2% 08/17/23 DME 11/25/2022 [place] negative for diabetic retinopathy Pap 09/21/23 Mammo reports she has an order and will get done. DEXA has never had one, ordered today Here today to [facility] Since last office visit she did have an emergency room visit for postmenopausal bleeding. The workup was reviewed. She is active with [facility] door liner helper for treatment. She has a follow up this afternoon for the results of the biopsy. Her blood work did show anemia however she is on on iron supplement. Her labs did show hyponatremia 127-130. This is new since starting hydrochlorothiazide. Her blood pressure is well controlled with hydrochlorothiazide and lisinopril. In regards to her diabetes she is tolerating her medication and taking as directed. Does not want to have a CGM but is interested in education. I will place a referral to the nurse navigator to explain to her what a CGM is and how it works. She states that she needs a new glucometer as hers is old and does not work. She is aware that insurance will not pay for test strips to be used every 4 hours during the day and that she will need to by test strips out of her own pocket. OVERDUE FOR A URINE microalbumin, last 1 was in 2019. We will obtain today. She can not tolerate a statin therefore she is on Zetia. Last lipid profile was in 2021. We will repeat her lipid profile during the next routine lab draw which will be scheduled in October. 09/14/23 BUN 32, cr 1.18 eGFR 46 PFSH Medical History (Updated 09/23/23 @ 09:17 by Raquel Win, [facility]) Vitamin deficiency Fungal rash of torso Fungal infection HBP (high blood pressure) High cholesterol Type 2 diabetes mellitus Surgical History History of cholecystectomy Social History Housing: Unknown / Unable to assess Patient Tobacco Use Status: Never used Tobacco e-Cigarette/Vaping Use: Never Used Current occupational status: unemployed Cognitive needs: No Hearing needs: No Vision needs: No Questionnaire Thrive Questionnaire Date Thrive assessed: 08/17/23 NOE-7 AMB Questionnaire NOE-7 Date NOE - 7 assessed: 08/17/23 Source: Developed by Drs. Carrington Fontenot, Rosanna Casillas, Hammad Kuhn and colleagues, with an educational todd from [employer]. Review of Systems Const All systems reviewed & are unremarkable except as noted in HPI and below Physical exam (Primary Care) Vital Signs: Last Vital Signs Temp 98 F 05/02/24 08:29 Pulse 96 09/23/23 08:29 Resp 14 09/23/23 08:29 BP 158/70 H 09/23/23 08:29 Pulse Ox 96 09/23/23 08:29 Oxygen Delivery Method Room Air 09/23/23 08:29 BMI result Body Mass Index 26.8 Tobacco/Smoking Status: Tobacco use Status Tobacco use date assessed 09/14/23 09/23/23 08:32 Patient Tobacco Use Status Never used Tobacco 09/23/23 08:32 e-Cigarette/Vaping Use Never Used 09/23/23 08:32 Thrive Assessment: Date of Thrive Assessment Date Thrive assessed 08/17/23 09/23/23 08:32 Const Other: Awake alert oriented accompanied by Mucous membranes moist Speaking in full sentences Assessment and Plan Assessment & Plan (1) Hyponatremia: Comment: likely related to HCTZ Plan: STOP HCTZ and repeat CMP in October. Code(s): E87.1 - Hypo-osmolality and hyponatremia (2) Hyperlipidemia associated with type 2 diabetes mellitus: Comment: Non tolerant to statins. On Zetia 10 mg. Update lipid profile in October. LDL goal less than 70 Code(s): E11.69 - Type 2 diabetes mellitus with other specified complication; E78.5 - Hyperlipidemia, unspecified (3) Diabetes mellitus type 2 with complications: Comment: Hypoglycemia while taking glipizide 10 mg p.o. b.i.d. in addition to metformin a 1000 mg p.o. b.i.d.. ->discontinue the glipizide immediately. On empaglifozin-metformin ER 5-1000 mg ER 2 tablets p.o. q.a.m. Continue to monitor blood sugars. Return to office in 2 weeks for monitoring. The rules of 15 reviewed with her today. We will need a new glucometer. I have asked for the nurse navigator to find out the coverage so that I may send the correct order. I have also placed a referral to the nurse navigator to provide education on a CGM to her and her . I strongly feel that she would benefit from this. She is willing to get the information but not willing to start the CGM at this time. Next A1c due in October. Code(s): E11.8 - Type 2 diabetes mellitus with unspecified complications (4) HBP (high blood pressure): Comment: On lisinopril 40 mg p.o. daily. Started on hydrochlorothiazide 12.5 mg p.o. daily. Great improvement in blood pressure. However cause hyponatremia. Therefore this will be discontinued. In place of the hydrochlorothiazide I will start amlodipine 2.5 mg p.o. daily take at bedtime. Monitor blood pressure daily at home. Goals less than 130/80. Code(s): I10 - Essential (primary) hypertension Qualifiers: Hypertension type: essential hypertension Qualified Code(s): I10 - Essential (primary) hypertension (5) Menopause: Comment: DEXA ordered. Code(s): Z78.0 - Asymptomatic menopausal state (6) CKD stage 3 due to type 2 diabetes mellitus: Comment: 09/14/23 BUN 32, cr 1.18 eGFR 46 On lisinopril. Avoid nephrotoxic agents, control blood pressure and diabetes. Code(s): E11.22 - Type 2 diabetes mellitus with diabetic chronic kidney disease; N18.30 - Chronic kidney disease, stage 3 unspecified Orders: Orders Microalbumin, Random (w Creat) Today E11.22 - Type 2 diabetes mellitus with diabetic chronic kidney disease, E11.8 - Type 2 diabetes mellitus with unspecified complications, N18.30 - Chronic kidney disease, stage 3 unspecified Lipid Panel 10/23/23 Hemoglobin A1c 10/23/23 Vitamin D 1,25 dihydroxy 10/23/23 Vitamin B12 and Folate 10/23/23 Comprehensive [place]. Panel Fast 10/23/23 TSH reflex Free T4 10/23/23 XR DEXA axial skeleton Today Z78.0 - Asymptomatic menopausal state Referrals Nurse Navigator Referral E11.8 - Type 2 diabetes mellitus with unspecified complications Medications: New amlodipine (Norvasc) 2.5 mg PO BEDTIME 30 tabs 1RF Patient Instructions: Return to office in October for 30 minute follow-up of diabetes, hypertension, lipids. Please get labs done 1 week before so that we have the results to discuss. Return to office sooner if your blood pressure is greater than 130/80 or you have any new complaints or concerns. Coding Level of Care Code Est Pt Level 5 (82548) Complex EM visit Add On G2211 Diagnoses Hyponatremia E87.1 Hyperlipidemia associated with type 2 diabetes mellitus E11.69; E78.5 Diabetes mellitus type 2 with complications E11.8 Essential hypertension I10 Hypertension type: essential hypertension Menopause Z78.0 CKD stage 3 due to type 2 diabetes mellitus E11.22; N18.30
[2023-09-23 08:29] VITALS: BP 158/70; PULSE 96; RESP 14; TEMP 36.6; O2SAT 96; BMI 26.8
[2023-09-23 09:03] VITALS: BP 138/64
== END 2023-09-23 09:17 | disposition home or self-care (01) ==
LOC: HO.HMGFM 08:23
PROVIDERS: PCP Hospitalist; Visit Provider Nurse Practitioner Family
DX: I12.9 Hypertensive chronic kidney disease with stage 1 through stage 4 chronic kidney disease, or unspecified chronic kidney disease (principal); E11.69 Type 2 diabetes mellitus with other specified complication; E11.22 Type 2 diabetes mellitus with diabetic chronic kidney disease; N18.30 Chronic kidney disease, stage 3 unspecified; E87.1 Hypo-osmolality and hyponatremia; E78.5 Hyperlipidemia, unspecified; Z78.0 Asymptomatic menopausal state
CPT/HCPCS: 99215; G2211

== ENCOUNTER 2023-09-23 09:09 | Outpatient (REF) | payer OTHER, SELFPAY ==
[2023-09-23 14:07] LABS: Creatinine Urine 24.89 mg/dL; Microalbum/Creatinine Ratio Ur 72.3 ug/mg cr (<30)
== END 2023-09-23 09:10 | disposition home or self-care (01) ==
LOC: HO.WMHL 09:09
PROVIDERS: Visit Provider Nurse Practitioner Family
DX: E11.22 Type 2 diabetes mellitus with diabetic chronic kidney disease (principal); N18.30 Chronic kidney disease, stage 3 unspecified; C54.1 Malignant neoplasm of endometrium
CPT/HCPCS: 82043; 82570; 99212

== ENCOUNTER 2023-09-23 12:46 | Outpatient (AMB) | payer OTHER, SELFPAY ==
[2023-09-23 12:51] VITALS: BP 130/70; BMI 26.6
--- NOTE | 2023-09-23 12:51 | A.OFFVIS_ITS ---
Vital Signs 09/23/23 12:51 Height 5 ft 2 in Weight 145 lb 8.081 oz BMI 26.6 BP 130/70 Intake Visit Reasons: emb results Medical Service Representative Required: Yes Medical Service Representative Language: Senior Director Insight Name: Luh RHODES Information Interpreted: non-clinical & clinical Accompanied by: Self / Same As Patient Allergies simvastatin Allergy (Intermediate, Verified 09/23/23 12:52) rash aspirin Allergy (Mild, Verified 09/23/23 12:52) rash penicillin V Allergy (Mild, Verified 09/23/23 12:52) rash rousvastatin Adverse Reaction (Uncoded 09/23/23 12:52) Rash Post menopausal: Yes HPI Comments Details: The patient is presenting after endometrial biopsy. The patient has no complaints, no vaginal bleeding, no feverishness chills or abdominal pain. 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 Comment: Immunostains for mismatch repair defect-related tumor are pending; addendum to follow Co testing still pending [facility] Medical History Vitamin deficiency Fungal rash of torso Fungal infection HBP (high blood pressure) High cholesterol Type 2 diabetes mellitus Surgical History History of cholecystectomy Social History Housing: Unknown / Unable to assess Patient Tobacco Use Status: Never used Tobacco e-Cigarette/Vaping Use: Never Used Current occupational status: unemployed Cognitive needs: No Hearing needs: No Vision needs: No Review of Systems Const All systems reviewed & are unremarkable except as noted in HPI and below Reports as per HPI and Reports no additional complaints GI Reports no additional complaints Reports no additional complaints Physical Exam Vital Signs: Last Vital Signs BP 130/70 09/23/23 12:51 BMI result Body Mass Index 26.6 Assessment & Plan Assessment & Plan (1) Endometrial cancer: Comment: adenocarcinoma, endometrioid type, FIGO grade 1, with focal mucinous features, 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 Code(s): C54.1 - Malignant neoplasm of endometrium Category: Medical Plan: Discussed with the patient the pathology results, the recommended surgical staging procedure, and the prognosis. The patient was referred to [facility] Spl[facility] for further management, appointment scheduled on 09/30/[address] Waddell at 09:00, the patient is aware. All questions answered, the patient verbalized understanding. Orders: Referrals Gynecologic Oncology Referral C54.1 - Malignant neoplasm of endometrium Coding Level of Care Code Est Pt Level 3 (42469) Diagnoses Endometrial cancer C54.1
== END 2023-09-23 14:44 | disposition home or self-care (01) ==
LOC: HO.HWS 12:46
PROVIDERS: PCP Hospitalist; Visit Provider Obstetrics & Gynecology
DX: C54.1 Malignant neoplasm of endometrium (principal)
CPT/HCPCS: 99213

== ENCOUNTER 2023-10-21 08:35 | Outpatient (AMB) | payer OTHER, SELFPAY ==
[2023-10-21 08:50] VITALS: BP 146/60; PULSE 102; RESP 14; TEMP 36.6; O2SAT 99; BMI 26.2
--- NOTE | 2023-10-21 08:50 | MHC.PC.OV ---
Vital Signs 10/21/23 08:50 10/21/23 09:29 Height 5 ft 2 in Weight 143 lb 8 oz BMI 26.2 BP 146/60 H 128/62 Blood Pressure Location Rt brachial Lt brachial Position Sitting Sitting Respiration 14 Pulse 102 H 88 Pulse Source Pulse Oximeter Auscultation Temp 97.8 F Temp Source Temporal Artery Scan Pulse Oximetry (%) 99 Oxygen Delivery Method Room Air Intake Visit Reasons: A1C C Web Developer Required: No Accompanied by: Spouse Allergies simvastatin Allergy (Intermediate, Verified 10/21/23 09:24) rash aspirin Allergy (Mild, Verified 10/21/23 09:24) rash penicillin V Allergy (Mild, Verified 10/21/23 09:24) rash rousvastatin Adverse Reaction (Uncoded 09/23/23 12:52) Rash Medication List - Last Reconciled 10/21/23 by Raquel Win, [facility]- amlodipine (Norvasc) 2.5 mg PO BEDTIME blood pressure monitor Automatic, Digital. Dx: I10. Daily As directed, 999 days/lifetime blood sugar diagnostic (FreeStyle Lite Strips) 1 strip miscellaneous BID PRN blood-glucose meter (FreeStyle Lite Meter kit) As directed cholecalciferol (vitamin D3) 50 mcg PO DAILY empagliflozin-metformin 5-1,000 mg ER (Synjardy XR) 2 tabs PO QAM ezetimibe 10 mg PO DAILY ferrous sulfate (Feosol) 325 mg PO BID lisinopril 40 mg PO DAILY multivitamin with folic acid 400 mcg (Daily-Catarino (with folic acid)) 1 tab PO DAILY vitamin B complex 1 cap PO DAILY Tobacco use date assessed: 09/14/23 Dental Screening Dental Screen Date: 08/17/23 HPI HPI Comments History of Present Illness Details 63-year-old female with diabetes type 2, anemia, hypertension, hyperlipidemia, fibroids, left ovarian cyst, CKD 3, elevated LFTS, microalbuminuria 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 Since last office visit she was diagnosed with endometrial cancer and uterine cancer grade 1. She is now being followed by [facility] oncology. She will be undergoing a total abdominal hysterectomy 10/25/2023. She reports that her blood glucose levels are much better since the last office visit. Her A1c does reflect that. She is tolerating compliant of her medications. Her blood pressure is also normotensive and at goal on the current regimen. Her hyponatremia that was noted at the last lab draw has resolved with discontinuation of the hydrochlorothiazide. Her labs from today show a normal sodium level. Additional details of the labs are listed below. Labs from today show a normal H&H, normal lytes, BUN 18, creatinine 1.01, GFR 55, random glucose 255, normal LFTs, B12 179, TSH 1.40, direct LDL is pending along with vitamin-D. [facility] Medical History Vitamin deficiency Fungal rash of torso Fungal infection HBP (high blood pressure) High cholesterol Type 2 diabetes mellitus Surgical History History of cholecystectomy Social History Housing: Apartment Patient Tobacco Use Status: Never used Tobacco e-Cigarette/Vaping Use: Never Used service: No Current occupational status: unemployed Cognitive needs: No Hearing needs: No Vision needs: No Questionnaire Thrive Questionnaire Date Thrive assessed: 08/17/23 NOE-7 AMB Questionnaire NOE-7 Date NOE - 7 assessed: 08/17/23 Source: Developed by Drs. Carrington Fontenot, Rosanna Casillas, Hammad Kuhn and colleagues, with an educational todd from [employer]. Review of Systems Const All systems reviewed & are unremarkable except as noted in HPI and below Physical exam (Primary Care) Vital Signs: Last Vital Signs Temp 97.8 F 10/21/23 08:50 Pulse 88 10/21/23 09:29 Resp 14 10/21/23 08:50 BP 128/62 10/21/23 09:29 Pulse Ox 99 10/21/23 08:50 Oxygen Delivery Method Room Air 10/21/23 08:50 BMI result Body Mass Index 26.2 Tobacco/Smoking Status: Tobacco use Status Tobacco use date assessed 09/14/23 10/21/23 09:00 Patient Tobacco Use Status Never used Tobacco 10/21/23 09:00 e-Cigarette/Vaping Use Never Used 10/21/23 09:00 Thrive Assessment: Date of Thrive Assessment Date Thrive assessed 08/17/23 10/21/23 09:00 Const Other: Awake alert oriented accompanied by Sclera is nonicteric bilat Mucous membranes moist Regular rate and rhythm Lung sounds clear to auscultation bilat Bilateral lower extremities no edema, hairless from mid lower leg to toes, palpable pedal pulses Results AMB Hemoglobin A1c AMB Hemoglobin A1c 8.1 % Last Edit by BETTY Mckinnon on 10/21/23 09:09 Results Reviewed Results Reviewed: Laboratory Last Values Hgb A1c (Clinic) 8.1 % (4.0-6.0) H 10/21/23 09:08 Assessment and Plan Assessment & Plan (1) Diabetes mellitus type 2 with complications: Comment: cont. empaglifozin-metformin ER 5-1000 mg ER 2 tablets p.o. q.a.m. Continue to monitor blood sugars. Code(s): E11.8 - Type 2 diabetes mellitus with unspecified complications (2) Hyperlipidemia associated with type 2 diabetes mellitus: Comment: Non tolerant to statins. On Zetia 10 mg. Update lipid profile in October. LDL goal less than 70 Code(s): E11.69 - Type 2 diabetes mellitus with other specified complication; E78.5 - Hyperlipidemia, unspecified (3) Hyponatremia: Comment: Resolve with cessation of hydrochlorothiazide. Code(s): E87.1 - Hypo-osmolality and hyponatremia (4) HBP (high blood pressure): Comment: On lisinopril 40 mg p.o. daily. & amlodipine 2.5 mg p.o. daily Monitor blood pressure daily at home. Goals less than 130/80. Code(s): I10 - Essential (primary) hypertension Qualifiers: Hypertension type: essential hypertension Qualified Code(s): I10 - Essential (primary) hypertension (5) B12 deficiency: Comment: On oral B12 however her B12 level continues to be low without anemia. I will check additional labs at the next lab draw to see if she would benefit from injectable B12. Code(s): E53.8 - Deficiency of other specified B group vitamins (6) CKD stage 3 due to type 2 diabetes mellitus: Comment: 09/14/23 BUN 32, cr 1.18 eGFR 46 On lisinopril. Avoid nephrotoxic agents, control blood pressure and diabetes. Code(s): E11.22 - Type 2 diabetes mellitus with diabetic chronic kidney disease; N18.30 - Chronic kidney disease, stage 3 unspecified Plan This note is constructed using voice recognition software. While every effort has been made to ensure accuracy in core laying machine operator, still errors may have been included Sometimes, these errors may affect the content or meaning of the given sentence . Total time spent caring for the patient today was 50 minutes. This includes time spent before the visit reviewing the chart, time spent during the visit, and time spent after the visit on documentation Orders: Orders AMB Hemoglobin A1c Today E11.8 - Type 2 diabetes mellitus with unspecified complications Lipid Panel 12/23/23 E11.22 - Type 2 diabetes mellitus with diabetic chronic kidney disease, E11.69 - Type 2 diabetes mellitus with other specified complication, E11.8 - Type 2 diabetes mellitus with unspecified complications, E53.8 - Deficiency of other specified B group vitamins, E78.5 - Hyperlipidemia, unspecified, N18.30 - Chronic kidney disease, stage 3 unspecified Hemoglobin A1c 12/23/23 E11.22 - Type 2 diabetes mellitus with diabetic chronic kidney disease, E11.69 - Type 2 diabetes mellitus with other specified complication, E11.8 - Type 2 diabetes mellitus with unspecified complications, E53.8 - Deficiency of other specified B group vitamins, E78.5 - Hyperlipidemia, unspecified, N18.30 - Chronic kidney disease, stage 3 unspecified Microalbumin, Random (w Creat) 12/23/23 E11.22 - Type 2 diabetes mellitus with diabetic chronic kidney disease, E11.69 - Type 2 diabetes mellitus with other specified complication, E11.8 - Type 2 diabetes mellitus with unspecified complications, E53.8 - Deficiency of other specified B group vitamins, E78.5 - Hyperlipidemia, unspecified, N18.30 - Chronic kidney disease, stage 3 unspecified Vitamin B12 and Folate 12/23/23 E11.22 - Type 2 diabetes mellitus with diabetic chronic kidney disease, E11.69 - Type 2 diabetes mellitus with other specified complication, E11.8 - Type 2 diabetes mellitus with unspecified complications, E53.8 - Deficiency of other specified B group vitamins, E78.5 - Hyperlipidemia, unspecified, N18.30 - Chronic kidney disease, stage 3 unspecified Homocysteine 12/23/23 E11.22 - Type 2 diabetes mellitus with diabetic chronic kidney disease, E11.69 - Type 2 diabetes mellitus with other specified complication, E11.8 - Type 2 diabetes mellitus with unspecified complications, E53.8 - Deficiency of other specified B group vitamins, E78.5 - Hyperlipidemia, unspecified, N18.30 - Chronic kidney disease, stage 3 unspecified Methylmalonic Acid 12/23/23 E11.22 - Type 2 diabetes mellitus with diabetic chronic kidney disease, E11.69 - Type 2 diabetes mellitus with other specified complication, E11.8 - Type 2 diabetes mellitus with unspecified complications, E53.8 - Deficiency of other specified B group vitamins, E78.5 - Hyperlipidemia, unspecified, N18.30 - Chronic kidney disease, stage 3 unspecified Parietal Cell Antibody 12/23/23 E11.22 - Type 2 diabetes mellitus with diabetic chronic kidney disease, E11.69 - Type 2 diabetes mellitus with other specified complication, E11.8 - Type 2 diabetes mellitus with unspecified complications, E53.8 - Deficiency of other specified B group vitamins, E78.5 - Hyperlipidemia, unspecified, N18.30 - Chronic kidney disease, stage 3 unspecified Comprehensive Met. Panel Today E11.69 - Type 2 diabetes mellitus with other specified complication, E11.8 - Type 2 diabetes mellitus with unspecified complications, E78.5 - Hyperlipidemia, unspecified, E87.1 - Hypo-osmolality and hyponatremia LDL Cholesterol Direct Today E11.69 - Type 2 diabetes mellitus with other specified complication, E11.8 - Type 2 diabetes mellitus with unspecified complications, E78.5 - Hyperlipidemia, unspecified, E87.1 - Hypo-osmolality and hyponatremia Comprehensive [place]. Panel Fast 12/23/23 E11.22 - Type 2 diabetes mellitus with diabetic chronic kidney disease, E11.69 - Type 2 diabetes mellitus with other specified complication, E11.8 - Type 2 diabetes mellitus with unspecified complications, E53.8 - Deficiency of other specified B group vitamins, E78.5 - Hyperlipidemia, unspecified, N18.30 - Chronic kidney disease, stage 3 unspecified Medications: Refilled ezetimibe 10 mg PO DAILY 90 tabs 3RF E78.00 - Pure hypercholesterolemia, unspecified lisinopril 40 mg PO DAILY 90 tabs 3RF E11.9 - Type 2 diabetes mellitus without complications amlodipine (Norvasc) 2.5 mg PO BEDTIME 90 tabs 0RF Patient Instructions: Return to the office in 3 months to follow up on chronic conditions with labs do 1 week before. Coding Level of Care Code Est Pt Level 5 (70169) Diagnoses Diabetes mellitus type 2 with complications E11.8 Hyperlipidemia associated with type 2 diabetes mellitus E11.69; E78.5 Hyponatremia E87.1 Essential hypertension I10 Hypertension type: essential hypertension B12 deficiency E53.8 CKD stage 3 due to type 2 diabetes mellitus E11.22; N18.30
[2023-10-21 09:29] VITALS: BP 128/62; PULSE 88
== END 2023-10-21 09:40 | disposition home or self-care (01) ==
PROVIDERS: PCP Nurse Practitioner Family; Visit Provider Nurse Practitioner Family
DX: I12.9 Hypertensive chronic kidney disease with stage 1 through stage 4 chronic kidney disease, or unspecified chronic kidney disease (principal); E11.22 Type 2 diabetes mellitus with diabetic chronic kidney disease; N18.30 Chronic kidney disease, stage 3 unspecified; E11.69 Type 2 diabetes mellitus with other specified complication; E78.5 Hyperlipidemia, unspecified; E87.1 Hypo-osmolality and hyponatremia; E53.8 Deficiency of other specified B group vitamins
CPT/HCPCS: 83036; 99215

== ENCOUNTER 2023-10-21 09:44 | Outpatient (REF) | payer OTHER, SELFPAY ==
[2023-10-21 11:33] LABS: Hematocrit 38.1 % (37.0-47.0); Hemoglobin 12.3 g/dl (12.0-16.0)
[2023-10-21 12:16] LABS: Alanine Aminotransferase 23 U/L (0-31); Albumin Level 4.4 g/dL (3.5-5.0); Alkaline Phosphatase 56 U/L (39-117); Anion Gap 18 (12-20); Aspartate Amino Transferase 23 U/L (5-31); Bilirubin Total 0.4 mg/dL (0.0-1.0); Blood Urea Nitrogen 18 mg/dL (9-16); Carbon Dioxide 22 mmol/L (22-29); Chloride 104 mmol/L (96-108); Estimated Glomerular Filt Rate 55; Glucose Random 255 mg/dL (60-115); Potassium 4.5 mmol/L (3.3-5.1); Sodium 139 mmol/L (135-145); Total Protein 7.7 g/dL (6.5-8.0)
[2023-10-21 12:44] LABS: Folate 11.8 ng/mL (> or = 4.0); Vitamin B12 179 pg/mL (200-900)
[2023-10-25 16:44] LABS: LDL Cholesterol Direct 170 mg/dL (<100); VITAMIN D (1,25 OH) D3 40 pg/mL; Vit D (1,25-Dihydroxy) Total 40 pg/mL (18-72); Vitamin D (1,25 OH) D2 <8 pg/mL
== END 2023-10-21 09:45 | disposition home or self-care (01) ==
LOC: HO.WFDLDS 09:44
PROVIDERS: Visit Provider Nurse Practitioner Family
DX: E87.1 Hypo-osmolality and hyponatremia (principal); E11.69 Type 2 diabetes mellitus with other specified complication; E78.5 Hyperlipidemia, unspecified; E11.8 Type 2 diabetes mellitus with unspecified complications; I10 Essential (primary) hypertension; E13.36 Other specified diabetes mellitus with diabetic cataract; E78.1 Pure hyperglyceridemia
CPT/HCPCS: 36415; 80053; 82607; 82652; 82746; 83721; 84443; 85014; 85018

== ENCOUNTER 2023-11-29 08:50 | Outpatient (AMB) | payer OTHER, SELFPAY ==
--- NOTE | 2023-11-29 08:56 | AM.OFFWIN_ITS ---
Intake Vital Signs 11/29/23 09:00 Height 5 ft 2 in Weight 141 lb 4 oz BMI 25.8 BP 138/64 Blood Pressure Location Lt brachial Position Sitting Respiration 12 Pulse 97 Pulse Source Pulse Oximeter Temp 98.2 F Temp Source Oral Pulse Oximetry (%) 99 Oxygen Delivery Method Room Air Intake Visit Reasons: Rash on left arm Intake Note: Rash on both arms. Went to ER Patient Tobacco Use Status: Never used Tobacco Allergies simvastatin Allergy (Intermediate, Verified 11/29/23 09:16) rash aspirin Allergy (Mild, Verified 11/29/23 09:16) rash penicillin V Allergy (Mild, Verified 11/29/23 09:16) rash rousvastatin Adverse Reaction (Uncoded 11/29/23 08:59) Rash Medication List - Last Reconciled 11/29/23 by Raquel Win, [facility]- amlodipine (Norvasc) 2.5 mg PO BEDTIME blood pressure monitor Automatic, Digital. Dx: I10. Daily As directed, 999 days/lifetime blood sugar diagnostic (FreeStyle Lite Strips) 1 strip miscellaneous BID PRN blood-glucose meter (FreeStyle Lite Meter kit) As directed cholecalciferol (vitamin D3) 50 mcg PO DAILY ezetimibe 10 mg PO DAILY ferrous sulfate (Feosol) 325 mg PO BID lisinopril 40 mg PO DAILY multivitamin with folic acid 400 mcg (Daily-Catarino (with folic acid)) 1 tab PO DAILY vitamin B complex 1 cap PO DAILY HPI HPI Comments History of Present Illness Details Here today as a walk in with several complaints The first is that of a rash that started on R arm with blistering. + itch. Went to [facility] for eval and tx of this rash as she was told to go to the ED if any changes with her body s/p [employer]NA[employer] surgery 10/23/23. I do not have the records from this visit. However, states she was dx w/ poison ishaan and sent home w/ hydroxyzine 25mg po TID prn, 1% cortisone and tecnu scrub which she has been using w/o relief. He wants a blood test to check her blood and is very upset this was not done in the ED. The rash started after working in the garden. It self innoculated. She has known poison ishaan dermatitis in the past. Lots of education was provided today to patient and that no blood test is needed. The rash is on bilat arms, bilat legs and left hip. the area to her left ac is more red and excoriated for uncontrolled scratching. Advised the tx was prednisone and edu on hyperglycemia. then states she stopped taking all of her DM meds except metformin as she did not like when her glucose readings are < 200 mg/dl. Wanted to dicuss this today during the walk in visit. I did advise that a new visit would need to be scheduled to address this and again educated on s/e of prednisone. He then asks me to write a letter for QID blood sugar testing as the insurance wont cover more than what is already being dispensed and they are buying strips out of pocket. Note sent to [facility] to help review this. Unlikely this will be covered as a CGM would be more appropriate however she declines. Be that as it may, she needs to schedule a routine f/u for this. then asks for meds for constipation. Lists the meds he is on and wants an RX sent her for. She admits she does have constipation at times. Advised i would send colace later today and that a visit would need to be scheduled to address this as the walk in is for 1 complaint. Exam awake alert NAD accompanied by poison ishaan dermatitis noted to right upper arm, interior aspect, bilat inner thighs, left hip/lower quad, right ankle and left AC extending to forearm and upper arm w/ secondary excorations, vessicles and erythema w/o warmth. There is localized edema to AC however pt reports IV infiltrated during ED visit. There is no signs of infection. The rash is not concerning for anything more than poison ishaan dermatitis omari given the exposure. Plan: pred taper zyrtec QD PRN hydroxyzine Stop topicals RXd by ED Start colace 100mg po BID PRN constipation, hold loose stools Edu about hyperglycemia. RTO to fu on this along w/ the other complaints mentioned today. Rec 1 -2 weeks, sooner PRN Total time spent during this encounter which includes chart review, documentation before and after along w/ patient facing time is 42 minutes. [facility] Medical History Vitamin deficiency Fungal rash of torso Fungal infection HBP (high blood pressure) High cholesterol Type 2 diabetes mellitus Surgical History History of cholecystectomy Social History Housing: Apartment Patient Tobacco Use Status: Never used Tobacco e-Cigarette/Vaping Use: Never Used service: No Current occupational status: unemployed Cognitive needs: No Hearing needs: No Vision needs: No Physical Exam Vital Signs: Last Vital Signs Temp 98.2 F 11/29/23 09:00 Pulse 97 11/29/23 09:00 Resp 12 11/29/23 09:00 BP 138/64 11/29/23 09:00 Pulse Ox 99 11/29/23 09:00 Oxygen Delivery Method Room Air 11/29/23 09:00 BMI result Body Mass Index 25.8 Assessment & Plan Assessment & Plan (1) Poison ishaan dermatitis: Code(s): L23.7 - Allergic contact dermatitis due to plants, except food Plan: . (2) Diabetes mellitus type 2 with complications: Comment: was on empaglifozin-metformin ER 5-1000 mg ER 2 tablets p.o. q.a.m. but she stopped this and is only taking metformin Continue to monitor blood sugars. Code(s): E11.8 - Type 2 diabetes mellitus with unspecified complications Plan: . (3) Constipation: Code(s): K59.00 - Constipation, unspecified Qualifiers: Constipation type: slow transit constipation Qualified Code(s): K59.01 - Slow transit constipation Plan: . Medications: New prednisone 5 tabs x 2 days, 4 tabs x 2 days, 3 tabs x 2 days, 2 tabs x 2 days, 1 tab x 2 days and then STOP. 10 mg PO DIRECTED 10 days 30 tabs 0RF docusate sodium (Colace) hold for loose stools 100 mg PO BID PRN 60 caps 2RF constipation cetirizine (Zyrtec) 10 mg PO DAILY 30 tabs 0RF Patient Instructions: Advised to take the medication daily with food. If new lesions crop up while on the taper advised to return to the office as we may need to hold the taper and/or extend the taper to prevent recurrence. Advised to cover the areas to prevent spread using something like a Tegaderm. Wash linen to also help prevent spread. Continue to use the [id number] skin scrubs to help protect the rest of your skin. Do your best to avoid contact. Stop creams given at the emergency room ok to continue the pill, hydroxyzine, as needed for additional itching. Coding Level of Care Code Est Pt Level 5 (52761) Diagnoses Poison ishaan dermatitis L23.7 Diabetes mellitus type 2 with complications E11.8 Slow transit constipation K59.01 Constipation type: slow transit constipation
[2023-11-29 09:00] VITALS: BP 138/64; PULSE 97; RESP 12; TEMP 36.8; O2SAT 99; BMI 25.8
== END 2023-11-29 09:28 | disposition home or self-care (01) ==
PROVIDERS: PCP Nurse Practitioner Family; Visit Provider Nurse Practitioner Family
DX: L23.7 Allergic contact dermatitis due to plants, except food (principal); E11.8 Type 2 diabetes mellitus with unspecified complications; K59.01 Slow transit constipation
CPT/HCPCS: 99215

== ENCOUNTER 2023-12-16 09:02 | Outpatient (AMB) | payer OTHER, SELFPAY ==
--- NOTE | 2023-12-16 09:04 | MHC.PC.OV ---
Vital Signs 12/16/23 09:11 12/16/23 09:20 Height 5 ft 2 in Weight 138 lb 6 oz BMI 25.3 BP 150/67 H 148/60 H Blood Pressure Location Rt brachial Rt brachial Position Sitting Sitting Respiration 16 Pulse 83 Pulse Source Pulse Oximeter Temp 98.0 F Temp Source Oral Pulse Oximetry (%) 99 Oxygen Delivery Method Room Air Intake Visit Reasons: 2 weeks fu 30 min poison ishaan dm constipation Intake Note: patient here for follow up on poison ishaan,DM and constipation. 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 Dx: I10. Daily As directed, 999 days/lifetime blood sugar diagnostic (FreeStyle Lite Strips) 1 strip miscellaneous BID PRN blood-glucose meter (FreeStyle Lite Meter kit) As directed cetirizine (Zyrtec) 10 mg PO DAILY cholecalciferol (vitamin D3) 50 mcg PO DAILY docusate sodium (Colace) 100 mg PO BID PRN ezetimibe 10 mg PO DAILY ferrous sulfate (Feosol) 325 mg PO BID lisinopril 40 mg PO DAILY metformin 1,000 mg PO BIDWMEAL multivitamin with folic acid 400 mcg (Daily-Catarino (with folic acid)) 1 tab PO DAILY vitamin B complex 1 cap PO DAILY Tobacco use date assessed: 09/14/23 Dental Screening Dental Screen Date: 12/16/23 Did you have a dental visit in the last 12 months?: Yes Did you have a dental problem in the last 6 months where you did not have access to dental care?: No Was dental information given to patient?: Patient has dentist HPI HPI Comments History of Present Illness Details 63-year-old female with diabetes type 2, anemia, hypertension, hyperlipidemia, fibroids, left ovarian cyst, CKD 3, elevated LFTS, microalbuminuria, endometrial cancer and uterine cancer grade 1. s/p cholecystectomy, total abdominal hysterectomy 10/25/2023 Here today for a follow up She was seen in the office 2 weeks ago for allergic dermatitis. She was treated with prednisone and Zyrtec along with p.r.n. hydroxyzine. The rash is resolved. She does have some healing scaled and crusted lesions on her left arm and abdomen. She is also here to follow up on her constipation. She was prescribed Colace at the last office visit. She is taking as directed. Reports moving her bowels every day, sometimes up to 3 times per day. She tells me that she is going to be starting radiation and treatment for her cancer next week and that the physician told her this could cause diarrhea. I have advised her today that if the treatment causes diarrhea she should hold the Colace. Finally in regards to her diabetes, she told me that the last office visit that she stopped taking all of her medications except for metformin as she did not like having a risk of a lower blood sugar. She likes to run her blood sugars high. She is very aware of the risks of an elevated blood sugar however she prefers to keep her blood sugars higher. She is taking metformin a 1000 mg twice per day. Her last A1c was 8.1% 10/21/2023. She is testing her blood glucose 4 times per day. The current prescription reads for 2 times per day. Have discussed CGM in the past and she declines. Hypertension well controlled on current regimen of lisinopril and amlodipine. She is a refill on her amlodipine today. Exam: Awake alert oriented Sclera is nonicteric bilat Mucous membranes moist Regular rate and rhythm Lung sounds clear to auscultation bilat Bilateral lower extremities no edema, hairless from mid lower leg to toes, palpable pedal pulses Left forearm, left lower quad of abd are resolving skin lesions that are pink w/o drainage or signs of infection. She does have pale pigmentation of the left forearm from where she was using topical steroid cream previously. Plan Refill sent on amlodipine and metformin at the same prescribed doses. I have written the prescription for her test strips for 4 times per day. Aware that the insurance company may not pay for this. Advised if there are any issues to reach out. Once again strongly encouraged use of a CGM. Continues to decline at this time. In regards to the poison ishaan, this has resolved completely. It is okay for her to stop taking the hydroxyzine as well as the Zyrtec. The areas that she still has on her skin are healing. Advised to leave alone. Stop Colace for diarrhea, otherwise use as needed for constipation. I would like to see her back at the end of January for routine follow up of her chronic conditions. Sooner if she needs something. This note is constructed using voice recognition software. While every effort has been made to ensure accuracy in podiatric medicine doctor, still errors may have been included Sometimes, these errors may affect the content or meaning of the given sentence . Total time spent caring for the patient today was 40 minutes. This includes time spent before the visit reviewing the chart, time spent during the visit, and time spent after the visit on documentation [facility] Medical History Vitamin deficiency Fungal rash of torso Fungal infection HBP (high blood pressure) High cholesterol Type 2 diabetes mellitus Surgical History History of cholecystectomy Social History Housing: Apartment Patient Tobacco Use Status: Never used Tobacco e-Cigarette/Vaping Use: Never Used service: No Current occupational status: unemployed Cognitive needs: No Hearing needs: No Vision needs: No Questionnaire Thrive Questionnaire Date Thrive assessed: 08/17/23 NOE-7 AMB Questionnaire NOE-7 Date NOE - 7 assessed: 08/17/23 Source: Developed by Drs. Carrington Fontenot, Rosanna Casillas, Hammad Kuhn and colleagues, with an educational todd from [employer]. Physical exam (Primary Care) Vital Signs: Last Vital Signs Temp 98.0 F 12/16/23 09:11 Pulse 83 12/16/23 09:11 Resp 16 12/16/23 09:11 BP 148/60 H 12/16/23 09:20 Pulse Ox 99 12/16/23 09:11 Oxygen Delivery Method Room Air 12/16/23 09:11 BMI result Body Mass Index 25.3 Tobacco/Smoking Status: Tobacco use Status Tobacco use date assessed 09/14/23 12/16/23 09:06 Patient Tobacco Use Status Never used Tobacco 12/16/23 09:06 e-Cigarette/Vaping Use Never Used 12/16/23 09:06 Thrive Assessment: Date of Thrive Assessment Date Thrive assessed 08/17/23 12/16/23 09:06 Assessment and Plan Assessment & Plan (1) Diabetes mellitus type 2 with complications: Comment: was on empaglifozin-metformin ER 5-1000 mg ER 2 tablets p.o. q.a.m. but she stopped this and is only taking metformin Continue to monitor blood sugars. Code(s): E11.8 - Type 2 diabetes mellitus with unspecified complications (2) Constipation: Code(s): K59.00 - Constipation, unspecified Qualifiers: Constipation type: slow transit constipation Qualified Code(s): K59.01 - Slow transit constipation (3) HBP (high blood pressure): Comment: On lisinopril 40 mg p.o. daily. & amlodipine 2.5 mg p.o. daily Monitor blood pressure daily at home. Goals less than 130/80. Code(s): I10 - Essential (primary) hypertension Qualifiers: Hypertension type: essential hypertension Qualified Code(s): I10 - Essential (primary) hypertension (4) Allergic dermatitis: Comment: RESOLVED Code(s): L23.9 - Allergic contact dermatitis, unspecified cause Medications: New metformin 1,000 mg (2 x 500 mg) PO BIDWMEAL 90 days 360 tabs 1RF Changed From blood sugar diagnostic (FreeStyle Lite Strips) 1 strip miscellaneous BID PRN 100 strips 10RF for diabetes mellitus E11.9 - Type 2 diabetes mellitus without complications To blood sugar diagnostic (FreeStyle Lite Strips) REquired to test 4 times per day. 1 strip miscellaneous QID 90 days 400 strips 2RF for diabetes mellitus E11.9 - Type 2 diabetes mellitus without complications Refilled amlodipine (Norvasc) 2.5 mg PO BEDTIME 90 tabs 0RF Coding Level of Care Code Est Pt Level 5 (25507) Diagnoses Diabetes mellitus type 2 with complications E11.8 Slow transit constipation K59.01 Constipation type: slow transit constipation Essential hypertension I10 Hypertension type: essential hypertension Allergic dermatitis L23.9
[2023-12-16 09:11] VITALS: BP 150/67; PULSE 83; RESP 16; TEMP 36.7; O2SAT 99; BMI 25.3
[2023-12-16 09:20] VITALS: BP 148/60
== END 2023-12-16 09:49 | disposition home or self-care (01) ==
PROVIDERS: PCP Nurse Practitioner Family; Visit Provider Nurse Practitioner Family
DX: E11.8 Type 2 diabetes mellitus with unspecified complications (principal); K59.01 Slow transit constipation; I10 Essential (primary) hypertension; L23.9 Allergic contact dermatitis, unspecified cause
CPT/HCPCS: 99215

== ENCOUNTER 2024-03-23 08:23 | Outpatient (REF) | payer OTHER, SELFPAY ==
[2024-03-23 11:26] LABS: Estimated Average Glucose 180 mg/dL; Hemoglobin A1C 183.4714 umol/L; Hemoglobin A1c % 7.9 % (<6.0); Total Hemoglobin (HGBA1C) 2936.7307 umol/L
[2024-03-23 11:39] LABS: Alanine Aminotransferase 23 U/L (0-31); Albumin Level 4.2 g/dL (3.5-5.0); Alkaline Phosphatase 59 U/L (39-117); Anion Gap 11 (12-20); Aspartate Amino Transferase 26 U/L (5-31); Bilirubin Total 0.5 mg/dL (0.0-1.0); Blood Urea Nitrogen 14 mg/dL (9-16); Calcium 9.7 mg/dL (8.4-10.2); Carbon Dioxide 28 mmol/L (22-29); Chloride 105 mmol/L (96-108); Cholesterol 253 mg/dL (<200); Estimated Glomerular Filt Rate > 60; Glucose Fasting 170 mg/dL (60-99); HDL Cholesterol 45 mg/dL (>40); LDL Cholesterol Calculated 157 mg/dL (<100); Potassium 3.8 mmol/L (3.3-5.1); Sodium 140 mmol/L (135-145); Total Protein 7.3 g/dL (6.5-8.0); Triglycerides 257 mg/dL (<150)
[2024-03-23 12:02] LABS: Creatinine Urine 93.85 mg/dL; Microalbum/Creatinine Ratio Ur 19.1 ug/mg cr (<30)
[2024-03-23 12:06] LABS: Folate 8.6 ng/mL (> or = 4.0); Vitamin B12 < 148 pg/mL (200-900)
[2024-03-24 15:19] LABS: Homocysteine 15.3 umol/L (<10.4)
[2024-03-28 05:53] LABS: Methylmalonic Acid 306 nmol/L (69-390)
[2024-03-29 14:13] LABS: Parietal Cell Antibody <=20.0 Unit (<=20.0)
== END 2024-03-23 08:24 | disposition home or self-care (01) ==
LOC: HO.WFDLDS 08:23
PROVIDERS: Visit Provider Nurse Practitioner Family
DX: E53.8 Deficiency of other specified B group vitamins (principal); E11.22 Type 2 diabetes mellitus with diabetic chronic kidney disease; N18.30 Chronic kidney disease, stage 3 unspecified; E11.69 Type 2 diabetes mellitus with other specified complication; E78.5 Hyperlipidemia, unspecified; E11.8 Type 2 diabetes mellitus with unspecified complications
CPT/HCPCS: 36415; 80053; 80061; 82043; 82570; 82607; 82746; 83036; 83090; 83516; 83921

== ENCOUNTER 2024-04-05 08:28 | Outpatient (AMB) | payer OTHER, SELFPAY ==
--- NOTE | 2024-04-05 08:30 | A.OFFPC_ITS ---
Vital Signs 04/05/24 08:35 04/05/24 08:43 04/05/24 09:29 Height 5 ft 2 in Weight 143 lb 6 oz BMI 26.2 BP 162/74 H 144/70 H 138/72 Blood Pressure Location Rt brachial Rt brachial Lt brachial Position Sitting Sitting Sitting Pulse 95 Pulse Source Pulse Oximeter Pulse Oximetry (%) 98 Oxygen Delivery Method Room Air Intake Visit Reasons: 5 months fu Intake Note: Five month follow up htn Allergies simvastatin Allergy (Intermediate, Verified 04/05/24 09:01) rash aspirin Allergy (Mild, Verified 04/05/24 09:01) rash penicillin V Allergy (Mild, Verified 04/05/24 09:01) rash rousvastatin Adverse Reaction (Uncoded 04/05/24 08:33) Rash Medication List - Last Reconciled 04/05/24 by Raquel Win, [employer]- amlodipine (Norvasc) 2.5 mg PO BEDTIME blood pressure monitor Automatic, Digital. Dx: I10. Daily As directed, 999 days/lifetime blood sugar diagnostic (FreeStyle Lite Strips) 1 strip miscellaneous QID 90 days blood-glucose meter (FreeStyle Lite Meter kit) As directed cetirizine (Zyrtec) 10 mg PO DAILY cholecalciferol (vitamin D3) 50 mcg PO DAILY docusate sodium (Colace) 100 mg PO BID PRN ezetimibe 10 mg PO DAILY ferrous sulfate (Feosol) 325 mg PO BID lisinopril 40 mg PO DAILY metformin 1,000 mg (2 x 500 mg) PO BIDWMEAL 90 days multivitamin with folic acid 400 mcg (Daily-Catarino (with folic acid)) 1 tab PO DAILY vitamin B complex 1 cap PO DAILY Tobacco use date assessed: 04/05/24 Dental Screening Dental Screen Date: 12/16/23 HPI HPI Comments History of Present Illness Details 64-year-old female with diabetes type 2, anemia, hypertension, hyperlipidemia, fibroids, left ovarian cyst, CKD 3, elevated LFTS, microalbuminuria, endometrial cancer and uterine cancer grade 1. 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 She is taking metformin for her diabetes. Testing her blood sugars at home. Denies any hypo or hyperglycemia. In regards to the anemia she does continue to take the iron supplement. She was not taking her B complex as she was told to hold this but she is really unsure why. Has not taken in at least 1 month. She denies any overt signs of bleeding. The following labs were reviewed with her today. Labs 03/23/2024 show normal electrolytes, normal renal function, fasting glucose 170, hemoglobin A1c 7.9% which is better compared to 8.1% in September, normal calcium, normal LFTs, total cholesterol elevated at 253 however improved from previous of 390 triglycerides 257 also improved from previous of 298 LDL 157 greatly improved from 288, HDL 45 which remains consistent with the last reading of 43, B12 is 148 which is lower than previous of 179, methylmalonic acid is normal, folate is normal, homocystine is elevated, normal urine microalbumin creatinine ratio which is improved as it was previously 72.3, MMA normal, antiparietal antibody cell normal Exam: Awake alert oriented Sclera is nonicteric bilat Mucous membranes moist Regular rate and rhythm Lung sounds clear to auscultation bilat Abd soft, nontender Bilateral lower extremities no edema, hairless from mid lower leg to toes, palpable pedal pulses Mood and affect appropriate Plan Stop b complex Start b12 5000 mcg QD Otherwise continue all medications as directed. Advised to follow up with care team as scheduled. Strongly advised for her to schedule her mammogram and her DEXA as these are overdue. Flu shot administered today Diabetic eye exam scheduled for 2024. She is on an Nate already. Her A1c is stable. She declines any additional medications. GI referral for colon, overdue Follow up in 6 months for complete physical exam with labs done 1 week before, sooner as needed This note is constructed using voice recognition software. While every effort has been made to ensure accuracy in breading machine tender, still errors may have been included Sometimes, these errors may affect the content or meaning of the given sentence . Total time spent caring for the patient today was 45 minutes. This includes time spent before the visit reviewing the chart, time spent during the visit, and time spent after the visit on documentation [facility] Medical History (Updated 04/06/24 @ 15:28 by Raquel Win [facility]) Vitamin deficiency Fungal rash of torso Fungal infection HBP (high blood pressure) High cholesterol Type 2 diabetes mellitus Surgical History (Updated 04/05/24 @ 08:35 by Rosina Teresa CMA) H/O total hysterectomy History of cholecystectomy Social History (Updated 04/05/24 @ 08:35 by oRsina Teresa CMA) Housing: Apartment Alcohol intake: never Patient Tobacco Use Status: Never used Tobacco e-Cigarette/Vaping Use: Never Used service: No Current occupational status: unemployed Cognitive needs: No Hearing needs: No Vision needs: No Questionnaire PHQ-9 Over the last 2 weeks, how often have you been bothered by any of the following problems? 1. Little interest or pleasure in doing things: several days 2. Feeling down, depressed, or hopeless: several days 7. Trouble concentrating on things, such as reading the newspaper or watching television: not at all 8. Moving or speaking so slowly that other people could have noticed. Or the opposite - being so fidgety or restless that you have been moving around a lot more than usual: not at all Source: Developed by Drs. Carrington Fontenot, Rosanna Casillas, Hammad Kuhn and colleagues, with an educational todd from [employer]. Thrive Questionnaire Date Thrive assessed: 04/05/24 I am a: Patient What is your living situation today?: I have a steady place to live Within the past 12 months, did the food you bought not last and you didn't have the money to get more?: I choose not to answer this question Within the past 12 months, did you worry whether your food would run out before you got money to buy more?: I choose not to answer this question Do you have trouble paying for medicines?: No Do you have trouble getting transportation to medical appointments?: Yes Do you have trouble paying your heating and electricity bill?: I choose not to answer this question Do you have trouble taking care of your child, family member or friend?: I choose not to answer this question Do you have trouble with day-to-day activities such as bathing, preparing meals, shopping, managing finances, etc.?: No Are you currently unemployed and looking for a job?: I choose not to answer this question Are you interested in more education?: No Please select the resources that you would like help with: None Currently or been in a relationship where the following occur: I choose not to answer THRIVE Score: 1 AUDIT C Alcohol Use Questionnaire (AUDIT-C) 1. How often do you have a drink containing alcohol?: Never 3. How often do you have six or more drinks on one occasion?: Never Total Score: 0 NOE-7 AMB Questionnaire NOE-7 Date NOE - 7 assessed: 08/17/23 Source: Developed by Drs. Carrington Fontenot, Rosanna Casillas, Hammad Kuhn and colleagues, with an educational todd from [employer]. Physical exam (Primary Care) Vital Signs: Last Vital Signs Pulse 95 04/05/24 08:35 BP 144/70 H 04/05/24 08:43 Pulse Ox 98 04/05/24 08:35 Oxygen Delivery Method Room Air 04/05/24 08:35 BMI result Body Mass Index 26.2 Tobacco/Smoking Status: Tobacco use Status Tobacco use date assessed 04/05/24 04/05/24 08:38 Patient Tobacco Use Status Never used Tobacco 04/05/24 08:35 e-Cigarette/Vaping Use Never Used 04/05/24 08:35 Thrive Assessment: Date of Thrive Assessment Date Thrive assessed 04/05/24 04/05/24 08:32 Currently or been in a relationship where the following occur: I choose not to answer Office Procedures Flu Questionnaire Does the patient have a severe egg allergy?: No Does the patient have severe life threatening allergies?: No Does the patient have a fever or illness today?: No Has the patient ever had Guillain-Homer Syndrome?: No Has the patient ever had any past reaction to a flu shot?: No Immunizations Fluarix Triv [id number] (PF) 45 mcg (15 mcg x 3)/0.5 mL IM syringe Performing Provider: BABAR Woo [place] [facility] [place] Administered by: Jaci Finn RN on 04/05/24 09:22 Dose Route Admin Location Dispensed Lot Number Expiration Date [facility] [employer]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 0.5 mL IM Left Deltoid 0.5 mL [id number] 11/20/24 44494-560-05 [employer] VIS Given Date VIS Provided VIS Publication Date 04/05/24 Single Vaccine 20 Eligibility Eligibility Date Funding Source Not [facility] Eligible 04/05/24 Private Coding Level of Care Code Est Pt Level 5 (61070) Complex EM visit Add On G2211 Diagnoses B12 deficiency E53.8 Endometrial cancer C54.1 CKD stage 3 due to type 2 diabetes mellitus E11.22; N18.30 Menopause Z78.0 Diabetes mellitus type 2 with complications E11.8 Hyperlipidemia associated with type 2 diabetes mellitus E11.69; E78.5 Assessment & Plan Assessment & Plan (1) B12 deficiency: Code(s): E53.8 - Deficiency of other specified B group vitamins Category: Medical Plan: . 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 s/p radiation and LIAM 2023 Code(s): C54.1 - Malignant neoplasm of endometrium Category: Medical Plan: . (3) CKD stage 3 due to type 2 diabetes mellitus: Comment: 09/14/23 BUN 32, cr 1.18 eGFR 46 On lisinopril. Avoid nephrotoxic agents, control blood pressure and diabetes. Code(s): E11.22 - Type 2 diabetes mellitus with diabetic chronic kidney disease; N18.30 - Chronic kidney disease, stage 3 unspecified Category: Medical Plan: . (4) Menopause: Comment: DEXA ordered. Code(s): Z78.0 - Asymptomatic menopausal state Category: Medical Plan: . (5) Diabetes mellitus type 2 with complications: Comment: was on empaglifozin-metformin ER 5-1000 mg ER 2 tablets p.o. q.a.m. but she stopped this and is only taking metformin Continue to monitor blood sugars. Code(s): E11.8 - Type 2 diabetes mellitus with unspecified complications Category: Medical Plan: . (6) Hyperlipidemia associated with type 2 diabetes mellitus: Comment: Non tolerant to statins. On Zetia 10 mg. LDL goal less than 70 Code(s): E11.69 - Type 2 diabetes mellitus with other specified complication; E78.5 - Hyperlipidemia, unspecified Category: Medical Plan: . Orders: Orders Complete Blood Count no Diff 05/01/25 E11.22 - Type 2 diabetes mellitus with diabetic chronic kidney disease, E11.69 - Type 2 diabetes mellitus with other specified complication, E11.8 - Type 2 diabetes mellitus with unspecified complications, E53.8 - Deficiency of other specified B group vitamins, E78.5 - Hyperlipidemia, unspecified, N18.30 - Chronic kidney disease, stage 3 unspecified, Z78.0 - Asymptomatic menopausal state IRON PROFILE 09/21/24 E11.22 - Type 2 diabetes mellitus with diabetic chronic kidney disease, E11.69 - Type 2 diabetes mellitus with other specified complication, E11.8 - Type 2 diabetes mellitus with unspecified complications, E53.8 - Deficiency of other specified B group vitamins, E78.5 - Hyperlipidemia, unspecified, N18.30 - Chronic kidney disease, stage 3 unspecified, Z78.0 - Asymptomatic menopausal state Vitamin B12 and Folate 09/21/24 E11.22 - Type 2 diabetes mellitus with diabetic chronic kidney disease, E11.69 - Type 2 diabetes mellitus with other specified complication, E11.8 - Type 2 diabetes mellitus with unspecified complications, E53.8 - Deficiency of other specified B group vitamins, E78.5 - Hyperlipidemia, unspecified, N18.30 - Chronic kidney disease, stage 3 unspecified, Z78.0 - Asymptomatic menopausal state Comprehensive [place]. Panel Fast 09/21/24 E11.22 - Type 2 diabetes mellitus with diabetic chronic kidney disease, E11.69 - Type 2 diabetes mellitus with other specified complication, E11.8 - Type 2 diabetes mellitus with unspecified complications, E53.8 - Deficiency of other specified B group vitamins, E78.5 - Hyperlipidemia, unspecified, N18.30 - Chronic kidney disease, stage 3 unspecifie d, Z78.0 - Asymptomatic menopausal state Hemoglobin A1c 09/21/24 E11.22 - Type 2 diabetes mellitus with diabetic chronic kidney disease, E11.69 - Type 2 diabetes mellitus with other specified complication, E11.8 - Type 2 diabetes mellitus with unspecified complications, E53.8 - Deficiency of other specified B group vitamins, E78.5 - Hyperlipidemia, unspecified, N18.30 - Chronic kidney disease, stage 3 unspecified, Z78.0 - Asymptomatic menopausal state Microalbumin, Random (w Creat) 09/21/24 E11.22 - Type 2 diabetes mellitus with diabetic chronic kidney disease, E11.69 - Type 2 diabetes mellitus with other specified complication, E11.8 - Type 2 diabetes mellitus with unspecified complications, E53.8 - Deficiency of other specified B group vitamins, E78.5 - Hyperlipidemia, unspecified, N18.30 - Chronic kidney disease, stage 3 unspecified, Z78.0 - Asymptomatic menopausal state TSH reflex Free T4 09/21/24 E11.22 - Type 2 diabetes mellitus with diabetic chronic kidney disease, E11.69 - Type 2 diabetes mellitus with other specified complication, E11.8 - Type 2 diabetes mellitus with unspecified complications, E53.8 - Deficiency of other specified B group vitamins, E78.5 - Hyperlipidemia, unspecified, N18.30 - Chronic kidney disease, stage 3 unspecified, Z78.0 - Asymptomatic menopausal state Vitamin D 25-OH Total 09/21/24 E11.22 - Type 2 diabetes mellitus with diabetic chronic kidney disease, E11.69 - Type 2 diabetes mellitus with other specified complication, E11.8 - Type 2 diabetes mellitus with unspecified complications, E53.8 - Deficiency of other specified B group vitamins, E78.5 - Hyperlipidemia, unspecified, N18.30 - Chronic kidney disease, stage 3 unspecified, Z78.0 - Asymptomatic menopausal state Influenza [id number] Immunization 04/05/24 Z23 - Encounter for immunization Referrals Gastroenterology Referral Z12.11 - Encounter for screening for malignant neoplasm of colon Medications: New mecobalamin (vitamin B12) 5,000 mcg PO DAILY 90 tabs 2RF Discontinued vitamin B complex Discontinued Reason: Doctor's Order 1 cap PO DAILY 90 caps 0RF
[2024-04-05 08:35] VITALS: BP 162/74; PULSE 95; O2SAT 98; BMI 26.2
[2024-04-05 08:43] VITALS: BP 144/70
[2024-04-05 09:29] VITALS: BP 138/72
== END 2024-04-05 09:22 | disposition home or self-care (01) ==
PROVIDERS: PCP Nurse Practitioner Family; Visit Provider Nurse Practitioner Family
DX: E11.22 Type 2 diabetes mellitus with diabetic chronic kidney disease (principal); C54.1 Malignant neoplasm of endometrium; N18.30 Chronic kidney disease, stage 3 unspecified; E11.8 Type 2 diabetes mellitus with unspecified complications; E11.69 Type 2 diabetes mellitus with other specified complication; E53.8 Deficiency of other specified B group vitamins; Z78.0 Asymptomatic menopausal state; E78.5 Hyperlipidemia, unspecified

== ENCOUNTER → 2024-04-05 08:28 | Outpatient (BNVA) | payer OTHER, SELFPAY | PROVIDERS: PCP Nurse Practitioner Family; Visit Provider Nurse Practitioner Family | DX: Z23 Encounter for immunization (principal); E53.8 Deficiency of other specified B group vitamins; C54.1 Malignant neoplasm of endometrium; E11.22 Type 2 diabetes mellitus with diabetic chronic kidney disease; N18.30 Chronic kidney disease, stage 3 unspecified; E78.5 Hyperlipidemia, unspecified; Z78.0 Asymptomatic menopausal state | CPT/HCPCS: 90471; 90656; 99212 ==

== ENCOUNTER 2024-10-18 07:28 | Outpatient (REF) | payer OTHER, SELFPAY ==
[2024-10-18 11:26] LABS: Hematocrit 35.1 % (37.0-47.0); Hemoglobin 10.9 g/dl (12.0-16.0); Mean Corpuscular HGB Conc 31.1 g/dl (31.0-35.0); Mean Corpuscular Hemoglobin 28.6 pg (27.0-33.0); Mean Corpuscular Volume 92.1 fL (80.0-98.0); Mean Platelet Volume 9.1 fL (9.4-12.3); Platelet Count 451 X10*3/uL (160-400); Red Blood Count 3.81 X10*6/uL (4.20-5.50); Red Cell Distribution Width 14.4 % (11.0-16.0); White Blood Count 4.9 X10*3/uL (4.8-10.8)
[2024-10-18 11:41] LABS: Estimated Average Glucose 240 mg/dL
[2024-10-18 12:13] LABS: Alanine Aminotransferase 13 U/L (0-31); Alkaline Phosphatase 73 U/L (39-117); Anion Gap 11 (12-20); Aspartate Amino Transferase 23 U/L (5-31); Bilirubin Total 0.4 mg/dL (0.0-1.0); Blood Urea Nitrogen 15 mg/dL (9-16); Calcium 9.4 mg/dL (8.4-10.2); Carbon Dioxide 28 mmol/L (22-29); Chloride 103 mmol/L (96-108); Estimated Glomerular Filt Rate > 60; Glucose Fasting 242 mg/dL (60-99); Iron 51 mcg/dL (30-160); Percent Iron Saturation 21 % (15-50); Potassium 4.1 mmol/L (3.3-5.1); Sodium 138 mmol/L (135-145); TSH reflex Free T4 1.99 uIU/mL (0.32-4.0); Total Iron Binding Capacity 246 mcg/dL (228-428); Total Protein 7.3 g/dL (6.5-8.0); Unsaturated Iron Binding 195 ug/dL; Vitamin D 25-OH Total 40.5 ng/mL (>30)
[2024-10-18 12:32] LABS: Creatinine Urine 118.73 mg/dL; Microalbum/Creatinine Ratio Ur 47.1 ug/mg cr (<30)
[2024-10-18 12:34] LABS: Folate 9.1 ng/mL (> or = 4.0); Vitamin B12 > 2000 pg/mL (200-900)
== END 2024-10-18 07:29 | disposition home or self-care (01) ==
LOC: HO.WFDLDS 07:28
PROVIDERS: Visit Provider Nurse Practitioner Family
DX: E53.8 Deficiency of other specified B group vitamins (principal); E11.22 Type 2 diabetes mellitus with diabetic chronic kidney disease; N18.30 Chronic kidney disease, stage 3 unspecified; Z78.0 Asymptomatic menopausal state; E78.5 Hyperlipidemia, unspecified
CPT/HCPCS: 36415; 80053; 82043; 82306; 82570; 82607; 82746; 83036; 83540; 84443; 85027

== ENCOUNTER 2024-11-13 12:36 | Outpatient (AMB) | payer OTHER, SELFPAY ==
--- NOTE | 2024-11-13 12:41 | A.OFFPC_ITS ---
Vital Signs 11/13/24 12:48 Height 5 ft 2 in Weight 138 lb BMI 25.2 BP 162/80 H Blood Pressure Location Rt brachial Position Sitting Respiration 14 Pulse 113 H Pulse Source Pulse Oximeter Temp 97.6 F Temp Source Oral Pulse Oximetry (%) 100 Oxygen Delivery Method Room Air Intake Visit Reasons: Rebook - Physical Intake Note: CPE Group Tester Required: No Allergies simvastatin Allergy (Intermediate, Verified 11/13/24 13:24) rash aspirin Allergy (Mild, Verified 11/13/24 13:24) rash penicillin V Allergy (Mild, Verified 11/13/24 13:24) rash rousvastatin Adverse Reaction (Uncoded 11/13/24 12:42) Rash Medication List - Last Reconciled 11/13/24 by AB Woo- amlodipine (Norvasc) 2.5 mg PO BEDTIME blood pressure monitor Automatic, Digital. Dx: I10. Daily As directed, 999 days/lifetime blood sugar diagnostic (FreeStyle Lite Strips) 1 strip miscellaneous QID 90 days blood-glucose meter (FreeStyle Lite Meter kit) As directed cetirizine (Zyrtec) 10 mg PO DAILY cholecalciferol (vitamin D3) 50 mcg PO DAILY docusate sodium (Colace) 100 mg PO BID PRN ezetimibe 10 mg PO DAILY ferrous sulfate 325 mg PO BID lisinopril 40 mg PO DAILY mecobalamin (vitamin B12) 5,000 mcg PO DAILY metformin 1,000 mg (2 x 500 mg) PO BIDWMEAL 90 days multivitamin with folic acid 400 mcg (Daily-Catarino (with folic acid)) 1 tab PO DAILY Tobacco use date assessed: 11/13/24 Fall risk assessment: No Falls in past year Last assessed Fall Risk: 11/13/24 Dental Screening Dental Screen Date: 11/13/24 Did you have a dental visit in the last 12 months?: Yes Did you have a dental problem in the last 6 months where you did not have access to dental care?: No Was dental information given to patient?: Patient has dentist HPI HPI Comments History of Present Illness Details 64-year-old female with diabetes type 2, anemia, hypertension, hyperlipidemia, fibroids, left ovarian cyst, CKD 3, elevated LFTS, microalbuminuria, endometrial cancer and uterine cancer grade 1 s/p radiation s/p cholecystectomy, total abdominal hysterectomy 10/25/2023 [facility] maintenance DME 11/25/2022 at [place] negative for diabetic retinopathy, next appt 2024 Mammo * see below DEXA -- ordered but patient never got done Pap active w/ [facility] Tdap 2015 Flu 04/05/24 Colon * see below Here today for CPE and chronic dz mgmt Mammo and Colon - states she is undergoing chemo and had what sounds like a PET scan done and told she does not need to do these screenings I dont have these records but have requested She states she was doing well s/p radiation for her endometrial and uterine cancer. Then she developed vag bleeding again and was told of a mass that is adhered to her colon, unsure what type of cancer this is. States she is now getting chemo. has port in R chest. Dr Merary Waddell - i have requested records but not rec'd as of this time. DM 2 uncontrolled w/ a1c 10% 09/2024 taking metformin only. Needs new testing supplies. Was on jardiance in the past and wants to start that again. Offered endo referral, declined. Optho reports UTD on DME, last exam 2022 negative. Next appt 11/2024 HLD on Zetia. HTN BP at goal on Norvasc and lisinopril Anemia - chronic on Iron and b12. Vit D def taking supplement. Due for DEXA has not completed. Exam General: Well developed, well nourished, in no acute distress. Appears stated age. Head: Normocephalic, atraumatic. Eyes: Pupils are equal, round and reactive to light and accommodation. Conjunctivae are clear. Vision grossly normal. Ears: TMs clear AU, EACS WNL Nose: Patent, without discharge. Mouth: There are no ulcers or lesions noted. No inflammation, no post nasal drip, no plaques nor exudates. Neck: Supple, no adenopathy or thyromegaly. Lungs: Clear to auscultation bilaterally. No rales, rhonchi or wheeze noted. Good air flow in all bloom. Heart: Regular rhythm. No murmurs, click, rubs or gallops are noted. Mild tachycardia Abdomen: Bowel sounds present in all quadrants. The abdomen is soft, nontender, with no masses or organomegaly noted. No hernias are noted. Musculoskeletal: Joints are nontender, without swelling, redness, or effusions. Range of motion is observed to be normal. Pulses: Peripheral pulses are equal and palpable bilaterally. hairless ble, skin intact Extremities: No clubbing, cyanosis nor edema is noted. Neurologic: Gait and station normal. Cranial Nerves 2-12 intact. Motor strength grossly symmetrical and intact. No sensory loss. Balance normal. Skin: No rashes, ulcers, or lesions noted. Turgor is good. Skin color is good. Hair and nails are without abnormalities. Fungal great toe nails bilat Psych: Normal eye contact, affect and mood appropriate, and normal interactions. Patient is alert and appropriate to context. Plan Tachy - w/o sx monitor, hydrate, RTO if no improvement Start jardiance 25mg po QD Cont all other meds Get notes from [facility] declined colon/mammo at this time Schedule DEXA Diabetic eye exam scheduled for 2024. She is on an Nate already. Her A1c is stable. FU in 4 months w/ repeat labs sooner PRN An additional 40 minutes was spent addressing the problem(s) noted at todays visit. This includes time spent before the visit reviewing the chart, time spent during the visit, and time spent after the visit on documentation reviewing laboratory results, diagnostic imaging, medications, performing a medically necessary evaluation, counseling on diagnoses, care coordination, ordering appropriate tests, ordering appropriate medications, review of tests performed by other providers, reporting test results with the patient, communication with other healthcare providers. [facility] Medical History (Updated 11/13/24 @ 14:12 by Raquel Win, [facility]) Vitamin deficiency Fungal rash of torso Fungal infection HBP (high blood pressure) High cholesterol Type 2 diabetes mellitus Surgical History (Updated 04/05/24 @ 08:35 by Rosina Teresa CMA) H/O total hysterectomy History of cholecystectomy Social History (Updated 04/05/24 @ 08:35 by Rosina Teresa CMA) Housing: Apartment Alcohol intake: never Patient Tobacco Use Status: Never used Tobacco e-Cigarette/Vaping Use: Never Used service: No Current occupational status: unemployed Cognitive needs: No Hearing needs: No Vision needs: No Questionnaire PHQ-9 Over the last 2 weeks, how often have you been bothered by any of the following problems? 1. Little interest or pleasure in doing things: several days 2. Feeling down, depressed, or hopeless: not at all 3. Trouble falling or staying asleep, or sleeping too much: not at all 4. Feeling tired or having little energy: not at all 5. Poor appetite or overeating: not at all 6. Feeling bad about yourself - or that you are a failure or have let yourself or your family down: not at all 7. Trouble concentrating on things, such as reading the newspaper or watching television: not at all 8. Moving or speaking so slowly that other people could have noticed. Or the opposite - being so fidgety or restless that you have been moving around a lot more than usual: not at all 9. Thoughts that you would be better off or of hurting yourself in some way: not at all Total score: 1 Depression Screening Interpretation: Negative Depression Screening Done: Yes 47605 - PHQ-9 Billing: Yes Source: Developed by Drs. Carrington Fontenot, Rosanna Casillas, Hammad Kuhn and colleagues, with an educational todd from [employer]. Thrive Questionnaire Date Thrive assessed: 11/13/24 I am a: Patient What is your living situation today?: I have a steady place to live Within the past 12 months, did the food you bought not last and you didn't have the money to get more?: Never true Within the past 12 months, did you worry whether your food would run out before you got money to buy more?: Never true Do you have trouble paying for medicines?: No Do you have trouble getting transportation to medical appointments?: No Do you have trouble paying your heating and electricity bill?: No Do you have trouble taking care of your child, family member or friend?: No Do you have trouble with day-to-day activities such as bathing, preparing meals, shopping, managing finances, etc.?: No Are you currently unemployed and looking for a job?: No Are you interested in more education?: No THRIVE Score: 0 AUDIT C Alcohol Use Questionnaire (AUDIT-C) 3. How often do you have six or more drinks on one occasion?: Never Total Score: 0 Score Reviewed/Action Taken: Yes NOE-7 AMB Questionnaire NOE-7 Date NOE - 7 assessed: 11/13/24 Feeling nervous, anxious, or on edge: 0 = Not at all Not being able to stop or control worryin = Not at all Worrying too much about different things: 0 = Not at all Trouble relaxin = Not at all Being so restless that it is hard to sit still: 0 = Not at all Becoming easily annoyed or irritable: 0 = Not at all Feeling afraid as if something awful might happen: 0 = Not at all Total NOE-7 score (0-4 normal; 5-9 mild; 10-14 moderate; 15-21 severe): 0 Source: Developed by Drs. Carrington Fontenot, Rosanna Casillas, Hammad Kuhn and colleagues, with an educational todd from [employer]. NOE-7 Assessment Billing NOE-7 Assessment Tool: NOE-7 Assessment 76946 Physical exam (Primary Care) Vital Signs: Last Vital Signs Temp 97.6 F 11/13/24 12:48 Pulse 113 H 11/13/24 12:48 Resp 14 11/13/24 12:48 BP 162/80 H 11/13/24 12:48 Pulse Ox 100 11/13/24 12:48 Oxygen Delivery Method Room Air 11/13/24 12:48 BMI result Body Mass Index 25.2 Tobacco/Smoking Status: Tobacco use Status Tobacco use date assessed 11/13/24 11/13/24 12:44 Patient Tobacco Use Status Never used Tobacco 11/13/24 12:44 e-Cigarette/Vaping Use Never Used 11/13/24 12:44 PHQ-9: PHQ-9 Score PHQ-9: Total score 1 11/13/24 13:24 Depression Screening Interpretation: Negative Thrive Assessment: Date of Thrive Assessment Date Thrive assessed 11/13/24 11/13/24 12:44 Office Procedures Diabetic Foot Exam Details: NORMAL MONOFILAMENT AND VIBRATORY SENSATIONS BILAT G9226 - Diabetic Foot Exam Coding Level of Care Code Est Pt Level 5 (50314) Est Pt Prev Care 40-64y(76288) Diagnoses Encounter for general adult medical examination with abnormal findings Z00.01 Hyperlipidemia associated with type 2 diabetes mellitus E11.69; E78.5 Essential hypertension I10 Hypertension type: essential hypertension Diabetes mellitus type 2 with complications E11.8 B12 deficiency E53.8 Cataract due to secondary diabetes E13.36 CKD stage 3 due to type 2 diabetes mellitus E11.22; N18.30 Endometrial cancer C54.1 Anemia D64.9 Anemia type: other cause Screening mammography declined Z53.20 Colon cancer screening declined Z53.20 Onychomycosis B35.1 Tachycardia R00.0 Vitamin D deficiency E55.9 CPT Codes Diabetic Foot Exam - CPT: G9226 - Diabetic Foot Exam ([id number]) Additional Codes NOE-7 Assessment Billing - NOE-7 Assessment Tool: NOE-7 Assessment 05983 ([id number]) PHQ-9 - 27984 - PHQ-9 Billing: Yes ([id number]) Assessment & Plan Assessment & Plan (1) Encounter for general adult medical examination with abnormal findings: Onset Date: ~11/13/24 Code(s): Z00.01 - Encounter for general adult medical examination with abnormal findings Category: Medical (2) Hyperlipidemia associated with type 2 diabetes mellitus: Comment: Non tolerant to statins. On Zetia 10 mg. LDL goal less than 70 Code(s): E11.69 - Type 2 diabetes mellitus with other specified complication; E78.5 - Hyperlipidemia, unspecified Category: Medical (3) HBP (high blood pressure): Comment: On lisinopril 40 mg p.o. daily. & amlodipine 2.5 mg p.o. daily Monitor blood pressure daily at home. Goals less than 130/80. Code(s): I10 - Essential (primary) hypertension Category: Medical Qualifiers: Hypertension type: essential hypertension Qualified Code(s): I10 - Essential (primary) hypertension (4) Diabetes mellitus type 2 with complications: Code(s): E11.8 - Type 2 diabetes mellitus with unspecified complications Category: Medical (5) B12 deficiency: Code(s): E53.8 - Deficiency of other specified B group vitamins Category: Medical (6) Cataract due to secondary diabetes: Code(s): E13.36 - Other specified diabetes mellitus with diabetic cataract Category: Medical (7) CKD stage 3 due to type 2 diabetes mellitus: Comment: 09/14/23 BUN 32, cr 1.18 eGFR 46 On lisinopril. Avoid nephrotoxic agents, control blood pressure and diabetes. Code(s): E11.22 - Type 2 diabetes mellitus with diabetic chronic kidney disease; N18.30 - Chronic kidney disease, stage 3 unspecified Category: Medical (8) Endometrial cancer: Comment: adenocarcinoma, endometrioid type, FIGO grade 1, with focal mucinous features, 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 s/p radiation and LIAM 2023 Code(s): C54.1 - Malignant neoplasm of endometrium Category: Medical (9) Anemia: Code(s): D64.9 - Anemia, unspecified Category: Medical Qualifiers: Anemia type: other cause (10) Screening mammography declined: Code(s): Z53.20 - Procedure and treatment not carried out because of patient's decision for unspecified reasons Category: Medical (11) Colon cancer screening declined: Code(s): Z53.20 - Procedure and treatment not carried out because of patient's decision for unspecified reasons Category: Medical (12) Onychomycosis: Comment: supportive care Code(s): B35.1 - Tinea unguium Category: Medical (13) Tachycardia: Code(s): R00.0 - Tachycardia, unspecified Category: Medical (14) Vitamin D deficiency: Code(s): E55.9 - Vitamin D deficiency, unspecified Category: Medical Plan . Orders: Orders Lipid Panel 4 Months E11.69 - Type 2 diabetes mellitus with other specified complication, E11.8 - Type 2 diabetes mellitus with unspecified complications, E78.5 - Hyperlipidemia, unspecified Medications: New empagliflozin (Jardiance) 25 mg PO DAILY 90 tabs 0RF lancets daily 100 ea 2RF Refilled metformin 1,000 mg (2 x 500 mg) PO BIDWMEAL 360 tabs 1RF 90 days amlodipine (Norvasc) 2.5 mg PO BEDTIME 90 tabs 0RF blood-glucose meter (FreeStyle Lite Meter kit) As directed 1 ea 0RF E11.9 - Type 2 diabetes mellitus without complications blood sugar diagnostic (FreeStyle Lite Strips) REquired to test 4 times per day. 1 strip miscellaneous QID 400 strips 0RF for diabetes mellitus 90 days E11.9 - Type 2 diabetes mellitus without complications
[2024-11-13 12:48] VITALS: BP 162/80; PULSE 113; RESP 14; TEMP 36.4; O2SAT 100; BMI 25.2
== END 2024-11-13 13:43 | disposition home or self-care (01) ==
LOC: HO.HMCFM 12:37
PROVIDERS: PCP Nurse Practitioner Family; Visit Provider Nurse Practitioner Family
DX: Z00.01 Encounter for general adult medical examination with abnormal findings (principal); I12.9 Hypertensive chronic kidney disease with stage 1 through stage 4 chronic kidney disease, or unspecified chronic kidney disease; E11.69 Type 2 diabetes mellitus with other specified complication; E11.8 Type 2 diabetes mellitus with unspecified complications; N18.30 Chronic kidney disease, stage 3 unspecified; E13.36 Other specified diabetes mellitus with diabetic cataract; E11.22 Type 2 diabetes mellitus with diabetic chronic kidney disease; C54.1 Malignant neoplasm of endometrium; E78.5 Hyperlipidemia, unspecified; E53.8 Deficiency of other specified B group vitamins; D64.9 Anemia, unspecified; Z53.20 Procedure and treatment not carried out because of patient's decision for unspecified reasons

== ENCOUNTER → 2024-11-13 12:36 | Outpatient (BNVA) | payer OTHER, SELFPAY | PROVIDERS: PCP Nurse Practitioner Family; Visit Provider Nurse Practitioner Family | DX: Z00.01 Encounter for general adult medical examination with abnormal findings (principal); E78.5 Hyperlipidemia, unspecified; E53.8 Deficiency of other specified B group vitamins; E11.69 Type 2 diabetes mellitus with other specified complication; E11.36 Type 2 diabetes mellitus with diabetic cataract; E11.22 Type 2 diabetes mellitus with diabetic chronic kidney disease; I12.9 Hypertensive chronic kidney disease with stage 1 through stage 4 chronic kidney disease, or unspecified chronic kidney disease; N18.30 Chronic kidney disease, stage 3 unspecified; C54.1 Malignant neoplasm of endometrium; D64.9 Anemia, unspecified; B35.1 Tinea unguium; R00.0 Tachycardia, unspecified; E55.9 Vitamin D deficiency, unspecified | CPT/HCPCS: 96127; 99212; 99396 ==

== ENCOUNTER 2025-01-08 08:41 | Outpatient (AMB) | payer MEDICAID, SELFPAY ==
--- NOTE | 2025-01-08 08:44 | A.OFFPC_ITS ---
Vital Signs 3 01/08/25 08:49 Height 5 ft 2 in Weight 137 lb 4 oz BMI 25.1 BP 140/76 H Blood Pressure Location Lt brachial Position Sitting Respiration 13 Pulse 129 H Pulse Source Pulse Oximeter Temp 97.3 F Temp Source Oral Pulse Oximetry (%) 99 Oxygen Delivery Method Room Air Intake Visit Reasons: high cholestrol Intake Note: Patient c/o high cholesterol Freight Inspector Required: No Allergies simvastatin Allergy (Intermediate, Verified 01/08/25 08:45) rash aspirin Allergy (Mild, Verified 01/08/25 08:45) rash penicillin V Allergy (Mild, Verified 01/08/25 08:45) rash rousvastatin Adverse Reaction (Uncoded 01/08/25 08:45) Rash Medication List - Last Reconciled 01/08/25 by AB Woo- amlodipine (Norvasc) 2.5 mg PO BEDTIME blood pressure monitor Automatic, Digital. Dx: I10. Daily As directed, 999 days/lifetime cetirizine (Zyrtec) 10 mg PO DAILY cholecalciferol (vitamin D3) 50 mcg PO DAILY docusate sodium (Colace) 100 mg PO BID PRN empagliflozin (Jardiance) 25 mg PO DAILY ezetimibe 10 mg PO DAILY ferrous sulfate 325 mg PO BID [Freestyle Lite glucometer test blood sugar once daily before breakfast] [Freestyle Lite lancets test blood sugar once daily before breakfast] [Freestyle Lite test strips test blood sugar once daily before breakfast] lancets daily lisinopril 40 mg PO DAILY mecobalamin (vitamin B12) 5,000 mcg PO DAILY metformin 1,000 mg (2 x 500 mg) PO BIDWMEAL 90 days multivitamin with folic acid 400 mcg (Daily-Catarino (with folic acid)) 1 tab PO DAILY Tobacco use date assessed: 01/08/25 Fall risk assessment: No Falls in past year Last assessed Fall Risk: 01/08/25 Dental Screening Dental Screen Date: 01/08/25 Did you have a dental visit in the last 12 months?: Yes Did you have a dental problem in the last 6 months where you did not have access to dental care?: No Was dental information given to patient?: Patient has dentist HPI HPI Comments 2 History of Present Illness0 Details 64-year-old female with diabetes type 2, anemia, hypertension, hyperlipidemia, fibroids, left ovarian cyst, CKD 3, elevated LFTS, microalbuminuria, endometrial cancer and uterine cancer grade 1 s/p radiation s/p cholecystectomy, total abdominal hysterectomy 10/25/2023 Specialists [employer] [facility] On[facility] Health maintenance DME 11/25/2022 at [place] negative for diabetic retinopathy, next appt 2024 Mammo * see below DEXA -- ordered but patient never got done 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 - Long-standing hyperlipidemia with rece nt elevated cholesterol levels of 326 and 390 mg/dL, noted by Onco team - On zetia, taking QD. Nontolerant of st atins. Review of Systems - Cardiovascular: Reports elevated ramin sterol levels. - Musculoskeletal: Reports joint pain, w orsened post-chemotherapy. - General: Reports feeling well for 3-4 days but experiences worsening joint pain and weakness. Physical Exam General: Well developed, well nourished, in no acute distress. Appears stated age. Head: Normocephalic, atraumatic. Eyes: Pupils are equal, round and reactive to light and accommodation. Conjunctivae are clear. Lungs: Clear to auscultation bilaterally. No rales, rhonchi or wheeze noted. Good air flow in all bloom. Heart: Regular rate and rhythm. No murmurs, click, rubs or gallops are noted. Extremities: No clubbing, cyanosis nor edema is noted. Psych: Mood and affect appropriate. Results see below Discussion Notes I outlined the possibility of adding fenofibrate to her medication regimen, noting its effectiveness on triglycerides but limited impact on overall cholesterol. I also explained the option of consulting a industrial illuminating engineer for potential eligibility for new IV cholesterol-lowering medications administered yearly. We discussed the importance of maintaining current treatment while trying fenofibrate. The decision was made to initiate fenofibrate, acknowledging her [employer] prescription service. Follow-up is scheduled for February with repeat labs a week prior. I confirmed the patient will continue her chemotherapy, and I sent the fenofibrate prescription with refills to [facility]. Patient was given time to ask questions. All questions were answered to their satisfaction. Assessment and Plan 1. Hyperlipidemia - Continue medication. - Add fenofibrate 150mg QD - Consider cardiology referral if no imp rovement - Repeat labs February. Patient Instructions - Continue taking your current cholester ol medication daily. - Start taking fenofibrate as prescribed . - Schedule a visit with a industrial illuminating engineer i f referred. - Return for blood tests before February appointment. Consent Patient was informed and verbally consented to the use of an ambient scribe for clinic note documentation during this visit. Total time spent caring for the patient today was 30 minutes. This includes time spent before the visit reviewing the chart, time spent during the visit, and time spent after the visit on documentation, reviewing laboratory results, diagnostic imaging, medications, performing a medically necessary evaluation, counseling on diagnoses, care coordination, ordering appropriate tests, ordering appropriate medications, review of tests performed by other providers, reporting test results with the patient, communication with other healthcare providers. [facility] Medical History (Updated 01/08/25 @ 09:10 by Raquel Win, [facility]) Fungal infection Fungal rash of torso HBP (high blood pressure) High cholesterol Type 2 diabetes mellitus Vitamin deficiency Surgical History (Updated 04/05/24 @ 08:35 by Rosina Teresa [facility]) H/O total hysterectomy History of cholecystectomy Social History (Updated 04/05/24 @ 08:35 by Rosina Teresa CMA) Housing: Apartment Alcohol intake: never Patient Tobacco Use Status: Never used Tobacco e-Cigarette/Vaping Use: Never Used service: No Current occupational status: unemployed Cognitive needs: No Hearing needs: No Vision needs: No Questionnaire PHQ-9 Over the last 2 weeks, how often have you been bothered by any of the following problems? 1. Little interest or pleasure in doing things: not at all 2. Feeling down, depressed, or hopeless: not at all 3. Trouble falling or staying asleep, or sleeping too much: not at all 4. Feeling tired or having little energy: not at all 5. Poor appetite or overeating: not at all 6. Feeling bad about yourself - or that you are a failure or have let yourself or your family down: not at all 7. Trouble concentrating on things, such as reading the newspaper or watching television: not at all 8. Moving or speaking so slowly that other people could have noticed. Or the opposite - being so fidgety or restless that you have been moving around a lot more than usual: not at all 9. Thoughts that you would be better off or of hurting yourself in some way: not at all Total score: 0 Depression Screening Interpretation: Negative Depression Screening Done: Yes 18885 - PHQ-9 Billing: Yes Source: Developed by Drs. Carrington Fontenot, Rosanna Casillas, Hammad Kuhn and colleagues, with an educational todd from [employer]. Thrive Questionnaire Date Thrive assessed: 01/08/25 I am a: Patient What is your living situation today?: I have a steady place to live Within the past 12 months, did the food you bought not last and you didn't have the money to get more?: Never true Within the past 12 months, did you worry whether your food would run out before you got money to buy more?: Never true Do you have trouble paying for medicines?: No Do you have trouble getting transportation to medical appointments?: No Do you have trouble paying your heating and electricity bill?: No Do you have trouble taking care of your child, family member or friend?: No Do you have trouble with day-to-day activities such as bathing, preparing meals, shopping, managing finances, etc.?: No Are you currently unemployed and looking for a job?: No Are you interested in more education?: No THRIVE Score: 0 NOE-7 AMB Questionnaire NOE-7 Date NOE - 7 assessed: 01/08/25 Feeling nervous, anxious, or on edge: 0 = Not at all Not being able to stop or control worryin = Not at all Worrying too much about different things: 0 = Not at all Trouble relaxin = Not at all Being so restless that it is hard to sit still: 0 = Not at all Becoming easily annoyed or irritable: 0 = Not at all Feeling afraid as if something awful might happen: 0 = Not at all Total NOE-7 score (0-4 normal; 5-9 mild; 10-14 moderate; 15-21 severe): 0 Source: Developed by Drs. Carrington Fontenot, Rosanna Casillas, Hammad Kuhn and colleagues, with an educational todd from [employer]. NOE-7 Assessment Billing NOE-7 Assessment Tool: NOE-7 Assessment 12238 Physical exam (Primary Care) Vital Signs: Last Vital Signs Temp 97.3 F 01/08/25 08:49 Pulse 129 H 01/08/25 08:49 Resp 13 01/08/25 08:49 BP 140/76 H 01/08/25 08:49 Pulse Ox 99 01/08/25 08:49 Oxygen Delivery Method Room Air 01/08/25 08:49 BMI result Body Mass Index 25.1 Tobacco/Smoking Status: Tobacco use Status Tobacco use date assessed 01/08/25 01/08/25 08:51 Patient Tobacco Use Status Never used Tobacco 01/08/25 08:51 e-Cigarette/Vaping Use Never Used 01/08/25 08:51 PHQ-9: PHQ-9 Score PHQ-9: Total score 0 01/08/25 08:51 Depression Screening Interpretation: Negative Thrive Assessment: Date of Thrive Assessment Date Thrive assessed 01/08/25 01/08/25 08:51 Results Reviewed Results Reviewed: Coding Level of Care Code Est Pt Level 4 (24278) Complex EM visit Add On G2211 Diagnoses Hyperlipidemia associated with type 2 diabetes mellitus E11.69; E78.5 Diabetes mellitus type 2 with complications E11.8 Endometrial cancer C54.1 Additional Codes NOE-7 Assessment Billing - NOE-7 Assessment Tool: NOE-7 Assessment 82138 ([id number]) PHQ-9 - 36039 - PHQ-9 Billing: Yes ([id number]) Assessment & Plan Assessment & Plan (1) Hyperlipidemia associated with type 2 diabetes mellitus: Comment: Non tolerant to statins. On Zetia 10 mg. 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 s/p radiation and LIAM 2023 undergoing chemo, has 2 more cycles left Code(s): C54.1 - Malignant neoplasm of endometrium Category: Medical Plan . Medications: New 2 fenofibrate 150 mg PO DAILY 90 caps 2RF Refilled 2 ezetimibe 10 mg PO DAILY 90 tabs 2RF E78.00 - Pure hypercholesterolemia, unspecified
[2025-01-08 08:49] VITALS: BP 140/76; PULSE 129; RESP 13; TEMP 36.3; O2SAT 99; BMI 25.1
== END 2025-01-08 10:21 | disposition home or self-care (01) ==
PROVIDERS: PCP Nurse Practitioner Family; Visit Provider Nurse Practitioner Family
DX: E11.69 Type 2 diabetes mellitus with other specified complication (principal); E78.5 Hyperlipidemia, unspecified; E11.8 Type 2 diabetes mellitus with unspecified complications; C54.1 Malignant neoplasm of endometrium

== ENCOUNTER → 2025-01-08 08:41 | Outpatient (BNVA) | payer MEDICAID, SELFPAY | PROVIDERS: PCP Nurse Practitioner Family; Visit Provider Nurse Practitioner Family | DX: E11.22 Type 2 diabetes mellitus with diabetic chronic kidney disease (principal); E11.69 Type 2 diabetes mellitus with other specified complication; I12.9 Hypertensive chronic kidney disease with stage 1 through stage 4 chronic kidney disease, or unspecified chronic kidney disease; N18.30 Chronic kidney disease, stage 3 unspecified; E78.00 Pure hypercholesterolemia, unspecified; D64.9 Anemia, unspecified; E11.8 Type 2 diabetes mellitus with unspecified complications; C54.1 Malignant neoplasm of endometrium | CPT/HCPCS: 96127; 99212 ==

== ENCOUNTER 2025-03-16 08:13 | Outpatient (REF) | payer OTHER, SELFPAY ==
[2025-03-16 12:36] LABS: Cholesterol 228 mg/dL (<200); HDL Cholesterol 50 mg/dL (>40); Triglycerides 180 mg/dL (<150)
[2025-03-16 13:01] LABS: Folate 11.3 ng/mL (> or = 4.0); Vitamin B12 763 pg/mL (200-900)
== END 2025-03-16 08:14 | disposition home or self-care (01) ==
LOC: HO.WFDLDS 08:13
PROVIDERS: PCP Nurse Practitioner Family; Visit Provider Nurse Practitioner Family
DX: Z23 Encounter for immunization (principal); E11.69 Type 2 diabetes mellitus with other specified complication; E11.8 Type 2 diabetes mellitus with unspecified complications; E78.5 Hyperlipidemia, unspecified; E53.8 Deficiency of other specified B group vitamins; E55.9 Vitamin D deficiency, unspecified; D64.9 Anemia, unspecified; G62.9 Polyneuropathy, unspecified; Z79.4 Long term (current) use of insulin; Z79.899 Other long term (current) drug therapy
CPT/HCPCS: 36415; 80061; 82306; 82607; 82746; 83036; 90471; 90656; 99212

== ENCOUNTER 2025-03-16 08:13 | Outpatient (AMB) | payer OTHER, SELFPAY ==
--- NOTE | 2025-03-16 08:19 | A.OFFPC_ITS ---
Vital Signs 03/16/25 08:20 03/16/25 09:11 Height 5 ft 2 in Weight 133 lb 8 oz BMI 24.4 BP 136/64 Blood Pressure Location Rt brachial Position Sitting Respiration 14 Pulse 110 H 88 Pulse Source Pulse Oximeter Auscultation Temp 99 F Temp Source Oral Pulse Oximetry (%) 98 Oxygen Delivery Method Room Air Intake Visit Reasons: 4 mo 30 min routine dm fu labs 1 week b4 Intake Note: Follow up Aml Analyst Required: No Allergies simvastatin Allergy (Intermediate, Verified 03/16/25 08:53) rash aspirin Allergy (Mild, Verified 03/16/25 08:53) rash penicillin V Allergy (Mild, Verified 03/16/25 08:53) rash rousvastatin Adverse Reaction (Uncoded 03/16/25 08:53) Rash Medication List - Last Reconciled 03/16/25 by Raquel Win [facility]- amlodipine (Norvasc) 2.5 mg PO BEDTIME blood pressure monitor Automatic, Digital. Dx: I10. Daily As directed, 999 days/lifetime cetirizine (Zyrtec) 10 mg PO DAILY cholecalciferol (vitamin D3) 50 mcg PO DAILY empagliflozin (Jardiance) 25 mg PO DAILY ezetimibe 10 mg PO DAILY fenofibrate nanocrystallized 145 mg PO DAILY ferrous sulfate 325 mg PO BID [Freestyle Lite glucometer test blood sugar once daily before breakfast] [Freestyle Lite lancets test blood sugar once daily before breakfast] [Freestyle Lite test strips test blood sugar once daily before breakfast] lancets daily lisinopril 40 mg PO DAILY mecobalamin (vitamin B12) 5,000 mcg PO DAILY metformin 1,000 mg (2 x 500 mg) PO BIDWMEAL 90 days Tobacco use date assessed: 03/16/25 Fall risk assessment: No Falls in past year Last assessed Fall Risk: 03/16/25 Dental Screening Dental Screen Date: 01/08/25 HPI HPI Comments History of Present Illness Details 65-year-old female with diabetes type 2, anemia, hypertension, hyperlipidemia, fibroids, left ovarian cyst, CKD 3, elevated LFTS, microalbuminuria, endometrial cancer and uterine cancer grade 1 s/p radiation s/p cholecystectomy, total abdominal hysterectomy 10/25/2023 Specialists [employer] [facility] Onco Health maintenance DME 11/25/2022 at [place] negative for diabetic retinopathy, next appt 2024 Mammo * see below DEXA -- ordered but patient never got done 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 Diabetes Mellitus Type 2: - A1c 7.5, morning glucose 120-122 mg/dL . - Reduced sweets and soda intake. Hyperlipidemia: - On fenofibrate & zetia - due for repeat labs today. Peripheral Neuropathy: - Affecting hands during chemo Low Vitamin B12 Level - Previously low due to metformin. - Supplement started, self-discontinued 2 weeks ago as she states she felt dizzy with position changes while taking and this has stopped since not taking. Due for repeat Vit D def Taking supplement, due for repeat labs Anemia secondary to Cancer Treatment: - Present, related to cancer therapy. Review of Systems - Neurological: Reports tingling sensati on. Denies dizziness after stopping Vitamin B12. - Dermatological: Denies new skin concer ns. - Hematologic: Reports persistent anemia . - Metabolic: Reports improvement in bloo d glucose levels. - General: Denies recent illness or gene ral discomfort. Physical Exam General: Well developed, well nourished, in no acute distress. Appears stated age. Head: Normocephalic, atraumatic. Eyes: Pupils are equal, round and reactive to light and accommodation. Conjunctivae are clear. Vision grossly normal. Lungs: Clear to auscultation bilaterally. No rales, rhonchi or wheeze noted. Good air flow in all bloom. Heart: Regular rate and rhythm. No murmurs, click, rubs or gallops are noted. Musculoskeletal: Joints are nontender, without swelling, redness, or effusions. Pulses: Peripheral pulses are equal and palpable bilaterally. Extremities: No clubbing, cyanosis nor edema is noted. Psych: Mood and affect appropriate. Patient appears happy and positive. Results Labs from 02/28/2025 done at [facility] show WBC 2.7, RBC 2.55, hemoglobin 7.9, hematocrit 24.9, normal electrolytes, BUN 21, creatinine 0.86, EGFR 75 normal calcium, magnesium of 1.4, normal liver functions, normal TSH and T4 Discussion Notes During our discussion, I addressed the patient's diabetes management, noting her improved A1c levels after starting Jardiance and diet modifications. We discussed her hyperlipidemia and the use of fenofibrate; she expressed concern about fasting for cholesterol levels due to recent eating, which primarily affects triglycerides. We agreed on checking her cholesterol soon when fasting can be ensured. I noted her symptoms of peripheral neuropathy likely due to cancer treatment. The patient reported stopping Vitamin B12 supplements, which she had been taking for six months due to low levels from metformin use. Her dizziness improved post interruption. We decided to re-evaluate her Vitamin B12 levels and refrain from continued supplementation pending results. I also confirmed her agreement for receiving a flu shot today and discussed the difficulty with insurance coverage for test strips, recommending [id number] purchase if needed. We scheduled a follow-up in three to four months to reassess control and manage any issues arising until then. Patient was given time to ask questions. All questions were answered to their satisfaction. Assessment and Plan 1. Diabetes Mellitus Type 2 - Continue Jardiance & Matformin - Monitor glucose levels; reduce sugary intake. 2. Hyperlipidemia - Fenofibrate & Zetia cont. - Check lipids today 3. Peripheral Neuropathy - Monitor symptoms due to chemo 4. Low Vitamin B12 Level - Repeat B12 level lab. - Suspend supplement for now. 5. Anemia secondary to Cancer Treatment - Monitor status; treatment ongoing. 6. Preventive Care - Administer flu vaccination. 7. Vit D def, check lab cont supplement at this time Patient Instructions - Continue medication as prescribed. - Eat a balanced diet with fewer sweets and sodas. - Plan for cholesterol test when fasting is possible. - Go to the lab today for blood tests, i ncluding Vitamin B12. - Schedule an eye exam soon. - Come back in for a follow- up. Requested [employer] form to be completed; done and put in fax box. - Buy test strips if needed, over-the-co unter, due to insurance limit. Consent Patient was informed and verbally consented to the use of an ambient scribe for clinic note documentation during this visit. Total time spent caring for the patient today was 30 minutes. This includes time spent before the visit reviewing the chart, time spent during the visit, and time spent after the visit on documentation, reviewing laboratory results, diagnostic imaging, medications, performing a medically necessary evaluation, counseling on diagnoses, care coordination, ordering appropriate tests, ordering appropriate medications, review of tests performed by other providers, reporting test results with the patient, communication with other healthcare providers. PFSH Medical History (Updated 03/16/25 @ 09:01 by Raquel Win [facility]) Fungal infection Fungal rash of torso HBP (high blood pressure) High cholesterol Type 2 diabetes mellitus Vitamin deficiency Surgical History H/O total hysterectomy History of cholecystectomy Social History (Updated 03/16/25 @ 08:38 by Rosina Teresa CMA) Housing: Apartment Alcohol intake: never Patient Tobacco Use Status: Never used Tobacco e-Cigarette/Vaping Use: Never Used Use of substances other than those prescribed or required for medical reasons: No service: No Current occupational status: unemployed Cognitive needs: No Hearing needs: No Vision needs: No Questionnaire Thrive Questionnaire Date Thrive assessed: 01/08/25 AUDIT C Alcohol Use Questionnaire (AUDIT-C) 1. How often do you have a drink containing alcohol?: Never 3. How often do you have six or more drinks on one occasion?: Never Total Score: 0 NOE-7 AMB Questionnaire NOE-7 Date NOE - 7 assessed: 01/08/25 Source: Developed by Drs. Carrington Fontenot, Rosanna Casillas, Hammad Kuhn and colleagues, with an educational todd from [employer]. Physical exam (Primary Care) Vital Signs: Last Vital Signs Temp 99 F 03/16/25 08:20 Pulse 110 H 03/16/25 08:20 Resp 14 03/16/25 08:20 BP 136/64 03/16/25 08:20 Pulse Ox 98 03/16/25 08:20 Oxygen Delivery Method Room Air 03/16/25 08:20 BMI result Body Mass Index 24.4 Tobacco/Smoking Status: Tobacco use Status Tobacco use date assessed 03/16/25 03/16/25 08:31 Patient Tobacco Use Status Never used Tobacco 03/16/25 08:38 e-Cigarette/Vaping Use Never Used 03/16/25 08:38 Thrive Assessment: Date of Thrive Assessment Date Thrive assessed 01/08/25 03/16/25 08:31 Results AMB Hemoglobin A1c AMB Hemoglobin A1c 7.5 % Last Edit by Rosina Teresa CMA on 03/16/25 08:36 Results Reviewed Results Reviewed: Laboratory Last Values Hgb A1c (Clinic) 7.5 % (4.0-6.0) H 03/16/25 08:31 Coding Level of Care Code Est Pt Level 4 (38570) Complex EM visit Add On G2211 Diagnoses B12 deficiency E53.8 Vitamin D deficiency E55.9 Influenza vaccination administered at current visit Z23 Hyperlipidemia associated with type 2 diabetes mellitus E11.69; E78.5 Diabetes mellitus type 2 with complications E11.8 Anemia D64.9 Anemia type: other cause Neuropathy G62.9 Assessment & Plan Assessment & Plan (1) B12 deficiency: Code(s): E53.8 - Deficiency of other specified B group vitamins Category: Medical (2) Vitamin D deficiency: Code(s): E55.9 - Vitamin D deficiency, unspecified Category: Medical (3) Influenza vaccination administered at current visit: Onset Date: ~03/16/25 Code(s): Z23 - Encounter for immunization Category: Medical (4) Hyperlipidemia associated with type 2 diabetes mellitus: Comment: Non tolerant to statins. On Zetia 10 mg. LDL goal less than 70 Add Fenofibrate 12/2024 Code(s): E11.69 - Type 2 diabetes mellitus with other specified complication; E78.5 - Hyperlipidemia, unspecified Category: Medical (5) Diabetes mellitus type 2 with complications: Code(s): E11.8 - Type 2 diabetes mellitus with unspecified complications Category: Medical (6) Anemia: Code(s): D64.9 - Anemia, unspecified Category: Medical Qualifiers: Anemia type: other cause (7) Neuropathy: Code(s): G62.9 - Polyneuropathy, unspecified Category: Medical Plan . Orders: Orders Vitamin B12 and Folate Today E53.8 - Deficiency of other specified B group vitamins, E55.9 - Vitamin D deficiency, unspecified AMB Hemoglobin A1c Today E11.69 - Type 2 diabetes mellitus with other specified complication, E78.5 - Hyperlipidemia, unspecified Vitamin D 25-OH Total Today E53.8 - Deficiency of other specified B group vitamins, E55.9 - Vitamin D deficiency, unspecified Medications: Refilled [Freestyle Lite test strips] test blood sugar once daily before breakfast 100 ea 2RF E11.8 - Type 2 diabetes mellitus with unspecified complications empagliflozin (Jardiance) 25 mg PO DAILY 90 tabs 0RF Discontinued mecobalamin (vitamin B12) Discontinued Reason: Patient Completed Course 5,000 mcg PO DAILY 90 tabs 2RF
[2025-03-16 08:20] VITALS: BP 136/64; PULSE 110; RESP 14; TEMP 37.2; O2SAT 98; BMI 24.4
[2025-03-16 09:11] VITALS: PULSE 88
== END 2025-03-16 09:20 | disposition home or self-care (01) ==
PROVIDERS: PCP Nurse Practitioner Family; Visit Provider Nurse Practitioner Family
DX: E11.69 Type 2 diabetes mellitus with other specified complication (principal); E11.8 Type 2 diabetes mellitus with unspecified complications; E53.8 Deficiency of other specified B group vitamins; E55.9 Vitamin D deficiency, unspecified; Z23 Encounter for immunization; E78.5 Hyperlipidemia, unspecified; D64.9 Anemia, unspecified; G62.9 Polyneuropathy, unspecified